=== PATIENT | female | born 1935 | race Caucasian/White ===

== ENCOUNTER 2020-05-21 01:00 | Outpatient (CLI) | payer MEDICARE, OTHER, SELFPAY ==
[2020-05-21 18:06] LABS: SARS-CoV-2 RNA PCR Negative
== END 2020-05-21 01:01 | disposition home or self-care (01) ==
LOC: ANHCOVIDDT 01:01
PROVIDERS: PCP Family Medicine; Visit Provider Specialist
DX: Z01.812 Encounter for preprocedural laboratory examination (principal); Z11.59 Encounter for screening for other viral diseases
CPT/HCPCS: 87635; C9803; U0003

== ENCOUNTER 2020-05-23 05:35 | Day surgery (SDC) | payer MEDICARE, OTHER, SELFPAY ==
[2020-05-23] VITALS (8 sets, daily range): BP systolic 109–144; BP diastolic 51–61; PULSE 60–80; RESP 12–22; TEMP 36.8–37; O2SAT 94–99; BMI 29.3
[2020-05-23 08:20] LABS: Basophils Absolute Auto 0.1 K/mm3 (0.0-0.1); Basophils Percent Auto 0.9 % (0.2-1.2); Hematocrit 28.3 % (37.0-47.0); Hemoglobin 7.9 g/dL (12.0-15.0); Immature Granulocyte Absolute 0.03 K/mm3 (0.00-0.031); Immature Granulocyte Percent A 0.5 % (0-0.5); Lymphocytes Absolute Auto 2.22 K/mm3 (0.9-3.2); Lymphocytes Percent Auto 34.5 % (18.3-44.2); Mean Corpuscular HGB Conc 27.9 g/dl (32-36); Mean Corpuscular Hemoglobin 21.2 pg (26-34); Mean Corpuscular Volume 76.1 fl (80-100); Mean Platelet Volume 9.7 fl (7.4-10.4); Monocytes Absolute Auto 0.5 K/mm3 (0.1-0.6); Monocytes Percent Auto 7.9 % (2.6-8.5); Neutrophils Absolute Auto 3.6 K/mm3 (1.3-6.7); Neutrophils Percent Auto 56.2 % (45.5-73.1); Platelet Count Result 408 k/mm3 (150-375); Red Blood Count 3.72 M/mm3 (4.2-5.4); Red Cell Distribution Width 19.6 % (11.5-14.5); White Blood Count 6.4 K/mm3 (4.5-10.0)
--- NOTE | 2020-05-23 08:25 | PM.IMHP ---
H&P: HPI History of Present Illness Chief complaint: Exertional Dyspnea Narrative: Caridad Mathews is a 84 year old female who is admitted to the hospital today as an outpatient for elective left heart catheterization. Patient was seen in the office in the request for primary care physician for evaluation of exertional shortness of breath. The patient was seen earlier this year with the request that his stress test be performed to evaluate the symptoms. She does not describe any obvious anginal-type chest pain but was a lady who could essentially perform normal activities and noticed over the last 6-12 months that her exertional capabilities have gradually declined because of dyspnea. As exercise stress test was done in the office which demonstrated a poor functional capacity and some upsloping ST segment depression which did not really meet clear diagnostic criteria for ischemia but was also not normal. She was seen in the office after this stress test and angiography was recommended to rule out obstructive coronary artery disease. The patient was scheduled for catheterization which then was canceled because of saldana virus. She has not been on stable clinically and has elected to wait until now have her procedure done as she was fearful of coming to the hospital during the worst of the pandemic. Review of Systems Constitutional: Constitutional: Reports no additional constitutional complaints Eyes: Eyes: Reports no additional eye complaints ENT: Reports system reviewed and no additional complaints, except as documented Cardiovascular: Cardiovascular: Reports as per HPI Respiratory: Respiratory: Reports dyspnea on exertion Gastrointestinal: Gastrointestinal: Reports no additional gastrointestinal complaints Genitourinary: Genitourinary: Reports no additional female genitourinary complaints Musculoskeletal: Musculoskeletal: Reports arthralgias Integumentary/Breasts: Skin/Breast: Reports system reviewed and no additional complaints, except as docu Neurologic: Reports system reviewed and no additional complaints, except as documented Psychiatric: Psychiatric: Reports no additional psychiatric complaints [facility] Social History Social History Smoking status: Former smoker Alcohol intake: never Substance use: never Living arrangements: with family Gender identity (if verbalized by the patient): Female Spiritual care concerns: No Meds Home Medications and Allergies Home Medications Medication Instructions Recorded Confirmed Type amlodipine 10 mg PO DAILY 05/22/20 05/22/20 History atorvastatin 40 mg PO HS 05/22/20 05/22/20 History lisinopril 40 mg PO DAILY 05/22/20 05/22/20 History aspirin [Adult Low Dose Aspirin] 81 mg PO DAILY 05/23/20 05/23/20 History calcium carbonate [Calcium 600] 1,200 mg PO DAILY 05/23/20 05/23/20 History cholecalciferol (vitamin D3) 10 mcg PO DAILY 05/23/20 05/23/20 History [Vitamin D3] coenzyme Q10 [CoQ-10] 200 mg PO DAILY 05/23/20 05/23/20 History niacin 500 mg PO DAILY 05/23/20 05/23/20 History omega 0-tlx-twk-fish oil [Fish Oil] 1 cap PO DAILY 05/23/20 05/23/20 History Allergies Allergy/AdvReac Type Severity Reaction Status Date / Time No Known Allergies Allergy Verified 05/23/20 08:25 Exam Const: General: comfortable and no acute distress HENMT: Mouth: Yes moist mucous membranes Eyes: Sclera: sclerae normal Pupils: Equal, round and reactive pupils present Neck: Neck: supple and no JVD Thyroid: thyroid normal Resp: Effort & Inspection: normal respiratory effort Auscultation: clear to auscultation bilaterally Cardio: Rate: regular rate Rhythm: regular rhythm Other: PMI of normal location and activity, no murmur no gallop no rub GI: GI Palp: Yes Soft to palpation Auscultation: normal bowel sounds Skin: General skin exam: normal color Neuro: Cognition (Neuro): normal cognition Extrem: General: normal to inspection Assessment and Plan Add
--- NOTE | 2020-05-23 08:29 | P.SEDATION_ITS ---
Moderate Sedation Note-Pt Data Patient Data Diagnosis: Exertional dyspnea, abnormal stress test Present Complaint: Shortness of breath with exertion Procedure to be performed/Plan: Left heart catheterization Allergies Allergy/AdvReac Type Severity Reaction Status Date / Time No Known Allergies Allergy Verified 05/23/20 08:25 Home Medications Medication Instructions Recorded Confirmed Type amlodipine 10 mg PO DAILY 05/22/20 05/22/20 History atorvastatin 40 mg PO HS 05/22/20 05/22/20 History lisinopril 40 mg PO DAILY 05/22/20 05/22/20 History aspirin [Adult Low Dose Aspirin] 81 mg PO DAILY 05/23/20 05/23/20 History calcium carbonate [Calcium 600] 1,200 mg PO DAILY 05/23/20 05/23/20 History cholecalciferol (vitamin D3) 10 mcg PO DAILY 05/23/20 05/23/20 History [Vitamin D3] coenzyme Q10 [CoQ-10] 200 mg PO DAILY 05/23/20 05/23/20 History niacin 500 mg PO DAILY 05/23/20 05/23/20 History omega 1-fbq-ajr-fish oil [Fish Oil] 1 cap PO DAILY 05/23/20 05/23/20 History Current Medications: Active Medications Sodium Chloride (Normal Saline Iv) 500 mls @ 100 mls/hr IV CONT .Q5H [facility] Sedation/Anesthesia: No previous sedation/anesthesia problems (including family history). [facility] Social History Social History Smoking status: Former smoker Alcohol intake: never Substance use: never Living arrangements: with family Gender identity (if verbalized by the patient): Female Spiritual care concerns: No Mod Sed Physical Exam Physical Exam Pre Procedural Exam: Normal: Appearance, Neck, Throat, Airway, Lungs, Heart Size, Heart Rate, Heart Rhythm, Neuro Exam and Extremities Hours since solid foods: 12 Hours since liquid intake: 12 Internal Medicine - PN: Obj Da Meds/Results Medications: Active Medications Generic Name Dose Route Start Last Admin Trade Name Freq PRN Reason Stop Dose Admin Sodium Chloride 500 mls @ 100 mls/hr 05/23/20 06:40 Normal Saline Iv IV CONT .Q5H [facility] Labs CBC & Chem 7: 05/23/20 08:12 05/23/20 08:12 ASA Classification/Sedation ASA Classification/Sedation ASA Class: II Emergent: No Risks: Risks, benefits and alternatives explained and patient/family accepted plan for sedation. Patient re-evaluated immediately prior to sedation.
[2020-05-23 08:31] LABS: Anisocytosis 2+ (NORMAL); Blood Urea Nitrogen 33 mg/dL (7-17); Calcium 9.4 mg/dL (8.4-10.2); Carbon Dioxide 25 mmol/L (22-30); Chloride 107 mmol/L (98-107); Estimated CRCL calculation 32 ml/min; Estimated Glomerular Filt Rate 43; Glucose 116 mg/dL (65-105); Platelet Estimate Adequate (Adequate); Potassium 4.6 mmol/L (3.4-5.0); Sodium 141 mmol/L (137-145)
[2020-05-23 08:32] LABS: Hypochromasia 2+ (NORMAL)
[2020-05-23 08:33] LABS: INR 0.9; Prothrombin Time 12.1 Seconds (11.1-14.7)
--- NOTE | 2020-05-23 09:40 | P.PCNCC_ITS ---
Cardiac Cath Procedure Note Date of procedure:: 05/23/20 Performing physician:: Timmy De La Fuente MD Indication:: Exertional dyspnea, abnormal stress electrocardiogram Brief clinical history:: this is an 84-year-old lady reporting symptoms of exertional dyspnea. She has no previous knowledge of cardiac disease. An exercise stress test was done as an outpatient which was modestly abnormal with nondiagnostic ST segment changes and poor functional capacity because of dyspnea. In this setting angiography was recommended. Procedure Procedure performed:: Left heart catheterization with left ventriculography and coronary angiography Angio-Seal to right femoral artery Sedation/Medication given:: fentanyl 50 mg Versed 2 mg case start time 9:22 a.m. case end time 9:25 a.m. sedation provided by Rosetta Sahni RN , trained observer Access site:: right femoral artery Estimated blood loss:: 10-15 cc Procedure note:: patient brought to the cardiac catheterization lab in the postabsorptive state the right femoral triangle was prepped and draped in usual fashion. Anesthesia was provided provided with 1% lidocaine infiltrated loc ally. Using modified Seldinger technique a 5 Burkinan sheath was placed into the common femoral artery. After this left heart catheterization was carried out. A 5 Burkinan angled pigtail catheter was document left-sided hemodynamics, pressures across the aortic valve and inject the ventriculogram HAWK projection. After this the pigtail catheter was withdrawn. A standard 5 Burkinan FL4 catheter was used to engage inject the left coronary multiple projections. Following this the right coronary was injected using a 5 Burkinan JR4 catheter. The cineangiograms and the case was then terminated. Angiogram was performed to the femoral artery through the after which a Angio-Seal device was deployed with a good hemostatic result. 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 Findings:: Hemodynamics: Central aortic pressure is 126/46 left ventricle 126/0 end diastolic pressure of 10. There is no gradient upon pullback across the aortic valve. The left ventricle is normal in size all segments contract well the ejection fraction is visually estimated to be 80% is hyperdynamic ventricle. The left main coronary artery is large in caliber there is mild left main disease in the distal aspect of the left main just prior to the bifurcation there is about 30% stenosis. In no view doses this appear to be approaching hemodynamic significance the LAD is a medium caliber vessel extending down to and around the apex the LAD is diagonal and septal branches are angiographically normal the circumflex is a medium caliber vessel giving rise to only 1 significant marginal branch. Circumflex system is angiographically free of significant disease right coronary artery is a very large caliber vessel dominant to the posterior circulation. There is a minimal plaque in the 2nd portion of the RCA representing no more than about 20% stenosis. There is KELBY 3 flow in the vessel with no angiographically significant disease. Conclusion:: Angiographically nonocclusive coronary artery disease including a 30% stenosis in the distal left main as well as a minimal plaque in the 2nd portion of the large dominant right coronary artery. Hyperdynamic left ventricular systolic function Timmy De La Fuente MD FACC
== END 2020-05-23 12:30 | disposition home or self-care (01) ==
PROVIDERS: PCP Family Medicine; Visit Provider Specialist
PROC: 4A023N7 Measurement of Cardiac Sampling and Pressure, Left Heart, Percutaneous Approach (ICD-10-PCS; CPT 93452; principal; 2020-05-23 08:30)
DX: I25.10 Atherosclerotic heart disease of native coronary artery without angina pectoris (principal); R94.31 Abnormal electrocardiogram [ECG] [EKG]; R06.09 Other forms of dyspnea; Z79.82 Long term (current) use of aspirin
CPT/HCPCS: 36415; 80048; 85025; 85610; 93458; C1760; C1887; C1894; G0269; J1644; J2250; J3010; J7040

== ENCOUNTER 2020-10-23 07:10 | Outpatient (CLI) | payer MEDICARE, OTHER, SELFPAY ==
[2020-10-23 07:49] LABS: Alanine Aminotransferase 17 U/L (4-35); Anion Gap 7 mmol/L (8-16); Blood Urea Nitrogen 29 mg/dL (7-17); Calcium 9.4 mg/dL (8.4-10.2); Carbon Dioxide 28 mmol/L (22-30); Chloride 107 mmol/L (98-107); Cholesterol 127 mg/dL (0-200); Estimated Glomerular Filt Rate 36; Glucose 129 mg/dL (65-105); HDL Direct 46 mg/dL; Potassium 4.4 mmol/L (3.4-5.0); Sodium 142 mmol/L (137-145); Triglycerides 146 mg/dL (<150)
[2020-10-23 08:00] LABS: LDL Cholesterol Direct 47 mg/dL
== END 2020-10-23 07:11 | disposition home or self-care (01) ==
PROVIDERS: PCP Family Medicine; Visit Provider Family Medicine
DX: I12.9 Hypertensive chronic kidney disease with stage 1 through stage 4 chronic kidney disease, or unspecified chronic kidney disease (principal); E78.5 Hyperlipidemia, unspecified
CPT/HCPCS: 36415; 80048; 80061; 84460

== ENCOUNTER 2020-10-23 16:30 | Observation (INO) | payer MEDICARE, OTHER, SELFPAY ==
[2020-10-23] VITALS (12 sets, daily range): BP systolic 117–145; BP diastolic 51–70; PULSE 77–106; RESP 10–18; TEMP 36.6–36.7; O2SAT 94–100
--- NOTE | ~2020-10-23 | XR_ITS ---
EXAMINATION: XR chest 2V DATE: 10/23/2020 17:08 INDICATION: Heart palpitations with interval worsening TECHNIQUE: AP and lateral views of the chest are obtained. COMPARISON: None available FINDINGS: The lungs are free of acute opacities. There is no pleural effusion or pneumothorax. The he art size is normal. There is a large hiatal hernia. There is mild thoracic spondylosis. IMPRESSION: 1. No acute cardiopulmonary abnormality. 2. Large hiatal hernia. Reviewed, dictated and finalized at location A. L BEARING FACER
--- NOTE | 2020-10-23 16:35 | ECG_ITS ---
Measurements Intervals [place] Rate: 105 P: 53 MI: 166 QRS: 2 QRSD: 82 T: 42 QT: 341 QTc: 452 Interpretive Statements SINUS TACHYCARDIA BORDERLINE ST ABNORMALITY- ANTEROLATERAL LEADS ABNORMAL ECG Electronically Signed On 10-24-2020 6:52:37 SPINDLE CARVER by Clayton Grullon D.O.
--- NOTE | 2020-10-23 16:54 | ED.ARRPALP ---
HPI - Arrhythmia/Palpitations General Chief Complaint: Arrhythmia/Palpitations Stated Complaint: HEART RACING Time Seen by Provider: 10/23/20 16:40 Source: patient and EMS Mode of arrival: EMS Limitations: no limitations History of Present Illness HPI narrative: 84 years old white female presents with palpitation, fast heartbeat prior to arrival lasted for 15 minutes. Result on arrival to the emergency room. Patient denies any associated shortness of breath or chest pain. Patient reported having similar symptoms on daily basis when she stands up and walk and get better after sitting and relaxing. Is been going since August 2020. Currently patient is asymptomatic. Patient denies any fever, chills, nausea, vomiting, chest pain, shortness of breath, headache, exposure to anybody known having COVID-19. Patient on baby aspirin once a day Related Data Home Medications Medication Instructions Recorded Confirmed amlodipine 10 mg PO DAILY 05/22/20 05/22/20 atorvastatin 40 mg PO HS 05/22/20 05/22/20 lisinopril 40 mg PO DAILY 05/22/20 05/22/20 aspirin [Adult Low Dose Aspirin] 81 mg PO DAILY 05/23/20 05/23/20 calcium carbonate [Calcium 600] 1,200 mg PO DAILY 05/23/20 05/23/20 cholecalciferol (vitamin D3) 10 mcg PO DAILY 05/23/20 05/23/20 [Vitamin D3] coenzyme Q10 [CoQ-10] 200 mg PO DAILY 05/23/20 05/23/20 niacin 500 mg PO DAILY 05/23/20 05/23/20 omega 0-bnq-spz-fish oil [Fish Oil] 1 cap PO DAILY 05/23/20 05/23/20 Allergies Allergy/AdvReac Type Severity Reaction Status Date / Time No Known Allergies Allergy Verified 10/23/20 16:41 Review of Systems Review of Systems: Narrative: CONSTITUTIONAL: Denies fever, chills, or sweats. EYES: Denies visual changes, redness, or discharge. ENT: Denies rhinorrhea, congestion, sore throat, or otalgia. CARDIOVASCULAR: Denies chest pain, palpitations, or edema. RESPIRATORY: Denies cough or dyspnea. GASTROINTESTINAL: Denies abdominal pain, nausea, vomiting, or diarrhea. GENITOURINARY: Denies dysuria or hematuria. SKIN: Denies rash or itching. MUSCULOSKELETAL: Denies back pain, joint pain, or myalgia. NEUROLOGIC: Denies headache, numbness, or weakness. PSYCHIATRIC: Denies anxiety or depression. PMFSH Social History Social History Smoking status: Former smoker Alcohol intake: never Substance use: never Gender identity (if verbalized by the patient): Female Spiritual care concerns: No Exam Narrative: Exam Narrative: General appearance: Well-developed, well-nourished Skin: Normal color Head: Normocephalic, nontraumatic Eyes: Clear conjunctiva ENT: Oropharynx normal, ears normal, nose normal Neck: Supple, nontender Chest and respiratory: Airway patent, no respiratory distress, no accessory muscle use Heart: Regular rate/rhythm Abdomen: Soft, nontender, no organomegaly, quiet bowel sounds. Rectal exam showed no stool in the rectal pouch, guaiac negative Vascular: Normal peripheral pulses, normal capillary refill. Musculoskeletal: Normal range of motion, nontender back Neurologic: Alert and oriented ?3, SPIRAL WINDER is normal as tested, no gross motor deficit Course Course Emergency Course: Resolved, improved NETWORK ARCHITECT MANAGER/PA Physician Supervision Freda Houston will receive a phone call tomorrow for Holter monitor placement Vital Signs Vital signs: Vital Signs Temperature 36.7 C 10/23/20 16:36 Pulse Rate 106 H 10/23/20 16:36 Respiratory Rate 13 10/23/20 16:36 Blood Pressure 145/70 H 10/23/20 16:36 Pulse Oximetry 94 10/23/20 16:36 Temperature 36.7 C 10/23/20 16:36 Pulse Rate 106 H 10/23/20 16:36 Respiratory Rate 13 10/23/20 16:36 Blood
[2020-10-23 17:24] LABS: Basophils Percent Auto 0.6 % (0.2-1.2); Hematocrit 23.8 % (37.0-47.0); Immature Granulocyte Absolute 0.02 K/mm3 (0.00-0.031); Immature Granulocyte Percent A 0.4 % (0-0.5); Lymphocytes Absolute Auto 1.54 K/mm3 (0.9-3.2); Lymphocytes Percent Auto 28.5 % (18.3-44.2); Mean Corpuscular HGB Conc 27.3 g/dl (32-36); Mean Corpuscular Hemoglobin 20.2 pg (26-34); Mean Corpuscular Volume 73.9 fl (80-100); Mean Platelet Volume 9.5 fl (7.4-10.4); Monocytes Absolute Auto 0.5 K/mm3 (0.1-0.6); Monocytes Percent Auto 8.5 % (2.6-8.5); Neutrophils Absolute Auto 3.4 K/mm3 (1.3-6.7); Platelet Count Result 349 k/mm3 (150-375); Red Blood Count 3.22 M/mm3 (4.2-5.4); Red Cell Distribution Width 18.2 % (11.5-14.5); White Blood Count 5.4 K/mm3 (4.5-10.0)
[2020-10-23 17:35] LABS: Anion Gap 4 mmol/L (8-16); Blood Urea Nitrogen 32 mg/dL (7-17); Calcium 9.7 mg/dL (8.4-10.2); Carbon Dioxide 27 mmol/L (22-30); Chloride 106 mmol/L (98-107); Estimated CRCL calculation 27 ml/min; Estimated Glomerular Filt Rate 36; Glucose 115 mg/dL (65-105); INR 0.9; Partial Thromboplastin Time 26.4 SECONDS (22.3-36.8); Potassium 4.4 mmol/L (3.4-5.0); Sodium 137 mmol/L (137-145)
[2020-10-23 17:46] LABS: Troponin I < 0.012 ng/mL (0.000-0.034)
[2020-10-23 17:52] LABS: Hemoglobin 6.5 g/dL (12.0-15.0)
[2020-10-23 18:01] LABS: Platelet Estimate Adequate (Adequate)
[2020-10-23 18:02] LABS: Anisocytosis 2+ (NORMAL); Hypochromasia 2+ (NORMAL)
--- NOTE | 2020-10-23 19:56 | PM.IMHP ---
H&P: HPI History of Present Illness Date/Time: 10/23/20 19:56 Chief complaint: palpitation, anemia Narrative: Caridad Mathews is a 84 year old female with past medical history hypertension and hyperlipidemia presents to ED with complaints of palpitations. She woke up this morning perfectly normal with no symptoms and even went to get a haircut. Then she had a sudden onset palpitations which last about 15 minutes in duration prompting her to come to the ED. She has had multiple episodes over the last year, had a stress test which was abnormal leading to a left heart catheterization in May 2020. May 2020 patient had a left heart catheterization for exertional dyspnea and nondiagnostic ST segment changes on outpatient exercise stress test. EF estimated 80%. Mild left main disease 30% stenosis, minimal plaque 2nd portion of large caliber vessel dominant RCA with 20% stenosis. conclusion was hyperdynamic left ventricular systolic function. Lab work at that time showed anemia hemoglobin 7.9. Had some anemia when she was a long time ago. In May she had MCV 76 and other blood lines were stable. She denies any blood loss, denies hemoptysis, hematemesis, vaginal bleeding, bright red blood per rectum, melena, trauma. She has no history of blood loss or any problems with blood loss in the past. She does not recall ever requiring a blood transfusion in the past. She is not on any iron supplements. On my evaluation patient denies any fevers, chills, nausea, vomiting, diarrhea, chest pain, abdominal pain, lightheadedness, dizziness. She is back to baseline and when I saw her she started having her 1st unit of blood being administered. In the ED: Patient is on be anemic a hemoglobin 6.5. Vital signs stable. creatinine elevated 1.4. Troponin is negative and has no chest pain. Chest x-ray showed large hiatal hernia otherwise negative. Patient admitted for observation for symptomatic anemia. Review of Systems Review of Systems: Narrative: Constitutional: No Fever, No Chills, No Night Sweats, No Fatigue, No Malaise ENT/Mouth: No Hearing Changes, No Ear Pain, No Nasal Congestion, No Sinus Pain, No Hoarseness, No sore throat, No Rhinorrhea, No Swallowing Difficulty Eyes: No Eye Pain, No Redness, No Vision Changes Cardiovascular: No Chest Pain, No Dyspnea on Exertion, No Orthopnea, No Claudication, No Edema. Palpitations resolved. Respiratory: No Cough, No Sputum, No Wheezing, No Shortness of Breath Gastrointestinal: No Nausea, No Vomiting, No Diarrhea, No Constipation, No Abdominal Pain, No Heartburn, No Hematochezia, No Melena Genitourinary: No Dysuria, No Urinary Frequency, No Hematuria, No Urinary Incontinence, No Urgency Musculoskeletal: No Arthralgias, No Myalgias, No Joint Swelling, No Joint Stiffness, No Back Pain Skin: No Skin Lesions, No Pruritis, No Hair Changes Neuro: No Weakness, No Numbness, No Paresthesias, No Loss of Consciousness, No Syncope, No Dizziness, No Headache Psych: No Anxiety/Panic, No Depression, No Insomnia Heme: No Bruising, No Bleeding Lymph: No Adenopathy Endocrine: No Polyuria, No Polydipsia, No Temperature Intolerance PMFSH Past Medical History Medical History (Updated 10/23/20 @ 23:35 by Miah Dougherty DO) CKD (chronic kidney disease) stage 3, GFR 30-59 ml/min Hyperlipidemia Hypertension Surgical History Surgical History (Updated 10/23/20 @ 23:20 by Miah Dougherty DO) History of right knee joint replacement Family History Family History (Updated 10/23/20 @ 23:20 by Miah Dougherty DO) Father Hypertension Cerebrovascular accident Mother Hypertension Colon cancer Alzheimer's dementia Social History Social History (Updated 10/23/20 @ 23:20 by Miah Dougherty DO) Social History: Independent, still drives, active Smoking status: Never smoker Alcohol intake: never Substance use: never Gender identity (if verbalized by the patient): Female
[2020-10-23 19:59] LABS: Immature Reticulocyte Fraction 23.3 % (3.0-15.9); Reticulocyte Hemoglobin Conten 18.5 pg (28.2-35.7); Reticulocyte Percent 1.68 % (0.7-4.3); Reticulocytes Absolute 0.05 B/L (32.2-175.7)
[2020-10-23 20:18] LABS: Alanine Aminotransferase 18 U/L (4-35); Albumin Level 4.2 g/dL (3.5-5.1); Alkaline Phosphatase 61 U/L (38-126); Aspartate Amino Transferase 24 U/L (14-36); Bilirubin,Total 0.4 mg/dL (0.2-1.3); Lactate Dehydrogenase 408 U/L (313-618)
[2020-10-23 20:24] LABS: Iron 12 ug/dL (37-170)
[2020-10-23 20:26] LABS: Transferrin 391 mg/dL (206-381)
[2020-10-23 20:30] LABS: Troponin I < 0.012 ng/mL (0.000-0.034)
[2020-10-23 20:35] LABS: Percent Iron Saturation 2 % (20-50)
[2020-10-23 21:01] LABS: Ferritin 4.19 ng/mL (11.1-264)
[2020-10-23 21:27] LABS: Folic Acid > 20.0 ng/mL (2.76->20)
--- NOTE | 2020-10-23 21:45 | ADMGEN ---
This patient, Caridad Mathews, was admitted to Medical Room 349-01. Patient/family oriented to hospital policies and general routines including ID bracelet, bed and alarms, visiting hours, pain management, procedures, bathroom and other care routines, personal items, smoking policy, room service/diet, and visiting hours. Information on how to activate the Rapid Response Team has been discussed. Patient/Family are encouraged to report perceived risks to care and to ask questions if they do not understand what they are told or what they should do.
[2020-10-23] MEDS: SODIUM CHLORIDE 0.9% IV 250 ML 30 ML IV CONT (22:01)
[2020-10-23 23:17] LABS: Troponin I < 0.012 ng/mL (0.000-0.034)
[2020-10-24] VITALS (13 sets, daily range): BP systolic 117–133; BP diastolic 45–68; PULSE 68–89; RESP 12–16; TEMP 36.4–37.1; O2SAT 96–99
[2020-10-24] MEDS: ATORVASTATIN 40 MG TABLET PO (00:45)
--- NOTE | 2020-10-24 06:00 | ECG_ITS ---
Measurements Intervals [place] Rate: 85 P: 35 CO: 165 QRS: -10 QRSD: 85 T: 18 QT: 354 QTc: 421 Interpretive Statements SINUS RHYTHM BASELINE WANDER- V4-V5 NORMAL ECG Electronically Signed On 10-24-2020 10:38:01 SUBSCRIPTION CREW LEADER by Clayton Grullon D.O.
[2020-10-24 07:14] LABS: Basophils Percent Auto 0.7 % (0.2-1.2); Hematocrit 31.5 % (37.0-47.0); Hemoglobin 9.6 g/dL (12.0-15.0); Immature Granulocyte Absolute 0.04 K/mm3 (0.00-0.031); Immature Granulocyte Percent A 0.7 % (0-0.5); Lymphocytes Absolute Auto 1.46 K/mm3 (0.9-3.2); Lymphocytes Percent Auto 25.3 % (18.3-44.2); Mean Corpuscular HGB Conc 30.5 g/dl (32-36); Mean Corpuscular Volume 75.5 fl (80-100); Mean Platelet Volume 9.3 fl (7.4-10.4); Monocytes Absolute Auto 0.5 K/mm3 (0.1-0.6); Monocytes Percent Auto 8.1 % (2.6-8.5); Neutrophils Absolute Auto 3.8 K/mm3 (1.3-6.7); Neutrophils Percent Auto 65.2 % (45.5-73.1); Platelet Count Result 310 k/mm3 (150-375); Red Blood Count 4.17 M/mm3 (4.2-5.4); Red Cell Distribution Width 19.6 % (11.5-14.5); White Blood Count 5.8 K/mm3 (4.5-10.0)
[2020-10-24] MEDS: CHOLECALCIFEROL 400 UNITS TABLET (VIT D) PO (08:15)
[2020-10-24] MEDS: CALCIUM CARBONATE (OSCAL) 500 MG TABLET 1000 MG PO (08:15)
[2020-10-24] MEDS: NIACIN SA 500 MG TABLET PO (08:15)
[2020-10-24] MEDS: ASPIRIN 81 MG ENTERIC TABLET PO (08:15)
[2020-10-24] MEDS: OMEGA 3 POLYUNSAT FATTY ACIDS 1 GM CAP PO (08:15)
[2020-10-24] MEDS: lisinopriL 20 MG TABLET 40 MG PO (08:16)
[2020-10-24] MEDS: amLODIPine BESYLATE 5 MG TABLET 10 MG PO (08:16)
[2020-10-24] MEDS: IRON SUCROSE COMPLEX 200 MG in SODIUM CHLORIDE 0.9% IV 50 ML 120 MG IVPB (11:28)
--- NOTE | 2020-10-24 13:27 | PM.DS ---
DS: Admitting Diagnosis Admitting Diagnosis Admitting Diagnosis: palpitation, anemia DS: Discharge Diagnosis Discharge Diagnosis (1) Fe deficiency anemia: Qualifiers: Iron deficiency anemia type: unspecified iron deficiency Qualified Code(s): D50.9 - Iron deficiency anemia, unspecified Code(s): D50.9 - Iron deficiency anemia, unspecified Status: Acute (2) CKD (chronic kidney disease) stage 3, GFR 30-59 ml/min: Qualifiers: Chronic kidney disease stage 3 subtype: stage 3b (GFR 30-44) Qualified Code(s): N18.32 - Chronic kidney disease, stage 3b Code(s): N18.30 - Chronic kidney disease, stage 3 unspecified Status: Acute (3) Palpitations: Code(s): R00.2 - Palpitations Status: Acute DS: Summary Hospital Course Reason for hospitalization: Patient was admitted to the hospital palpitations leg occurred shortly prior to arrival. She was found to have symptomatic anemia with a hemoglobin less than 7. H&P for further details. Hospital Course: Patient was admitted for symptomatic anemia. She was found to have evidence of iron deficiency. She received 2 units packed red blood cells with repeat hemoglobin of 9.6. After transfusion. Her iron studies iron deficiency anemia. She was given a dose of 200 mg IV x1. She was started on ferrous sulfate 3 and 25 mg b.i.d. with meals. I encouraged her to also take some vitamin-C to increase iron absorption. Time Spent with Patient Time attestation: Total time spent providing and/or coordinating discharge services: 40 minutes Exam Narrative: Exam Narrative: PHYSICAL EXAM: WEIGHT 73 kg BMI 28.5 General: No acute distress, well-developed well-nourished HEENT: Mucous membranes are moist, mild conjunctival pallor Respiratory: Clear to auscultation bilaterally, no increased work of breathing Cardiovascular: Regular rate, regular rhythm Gastrointestinal: Soft, nontender, nondistended, positive bowel sounds Skin: Mild pallor, non jaundice Musculoskeletal: No clubbing, cyanosis or edema Neurological: Alert and oriented, speech is clear, no facial asymmetry, hard of hearing Psychiatric: Appropriate mood and affect, pleasant and cooperative : Deferred Hematologic/lymphatic: No petechiae, bruising or evidence of bleeding DS: Data Data Completed and Pending Labs on day of discharge: Labs from last 24 hours 10/24/20 10/23/20 10/23/20 07:06 22:46 19:51 WBC 5.8 RBC 4.17 L Hgb 9.6 L D Hct 31.5 L MCV 75.5 L MCH 23.0 L D MCHC 30.5 L RDW 19.6 H Plt Count 310 MPV 9.3 Immature Gran % (Auto) 0.7 H Neut % (Auto) 65.2 Lymph % (Auto) 25.3 [place] % (Auto) 8.1 Eos % (Auto) 0.0 Baso % (Auto) 0.7 Lymph # (Auto) 1.46 [place] # (Auto) 0.5 Eos # (Auto) 0.0 Baso # (Auto) 0.0 Abs Immat Gran (auto) 0.04 H Absolute Neuts (auto) 3.8 Absolute Nucleated RBC 0.0 Nucleated RBC % 0.0 Platelet Estimate Hypochromasia Anisocytosis Absolute Retic Percent Retic Immature Retic Fraction Retic Hgb Content Haptoglobin Pending PT INR APTT Sodium Potassium Chloride Carbon Dioxide Anion Gap BUN Creatinine Estim Creat Clear Calc Estimated GFR Glucose Calcium Iron TIBC % Saturation Transferrin Ferritin Total Bilirubin Direct Bilirubin AST ALT Alkaline Phosphatase Lactate Dehydrogenase Troponin I < 0.012 Total Protein Albumin Vitamin B12 Folate TSH (Reflex) Blood Type Antibody Screen Crossmatch 10/23/20 10/23/20 10/23/20 19:51 19:51 19:51 WBC RBC Hgb Hct MCV MCH MCHC RDW Plt Count MPV Immature Gran % (Auto) Neut % (Auto) Lymph % (Auto) [place] % (Auto) Eos % (Auto) Baso % (Auto) Lymph # (Auto) [place] # (Auto) Eos # (Auto) Baso # (Auto) Abs Immat Gran (auto)
[2020-10-30 20:04] LABS: Haptoglobin 247 mg/dL (43-212)
== END 2020-10-24 16:35 | disposition home or self-care (01) ==
LOC: ANHED 18:38 → ANH3MED 10-24 07:16
PROVIDERS: Physician Assistant; Admitting Provider Internal Medicine; Emergency Provider Emergency Medicine; PCP Family Medicine; Visit Provider Internal Medicine
DX: R00.2 Palpitations (principal); D50.9 Iron deficiency anemia, unspecified; I12.9 Hypertensive chronic kidney disease with stage 1 through stage 4 chronic kidney disease, or unspecified chronic kidney disease; N18.32 Chronic kidney disease, stage 3b; E78.5 Hyperlipidemia, unspecified; K44.9 Diaphragmatic hernia without obstruction or gangrene; Z96.651 Presence of right artificial knee joint; Z79.899 Other long term (current) drug therapy; Z79.01 Long term (current) use of anticoagulants
CPT/HCPCS: 36415; 36430; 71046; 80048; 80061; 80076; 82247; 82248; 82607; 82728; 82746; 83010; 83540; 83550; 83615; 84443; 84460; 84466; 84484; 85025; 85046; 85610; 85730; 86644; 86850; 86900; 86901; 86920; 93005; 96365; 99285; A9270; G0378; J1756; J7050; P9016

== ENCOUNTER 2020-10-31 08:50 | Outpatient (CLI) | payer MEDICARE, OTHER, SELFPAY ==
[2020-10-31 10:03] LABS: Hematocrit 36.8 % (37.0-47.0); Hemoglobin 10.6 g/dL (12.0-15.0); Mean Corpuscular HGB Conc 28.8 g/dl (32-36); Mean Corpuscular Hemoglobin 23.7 pg (26-34); Mean Corpuscular Volume 82.3 fl (80-100); Mean Platelet Volume 9.4 fl (7.4-10.4); Platelet Count Result 302 k/mm3 (150-375); Red Blood Count 4.47 M/mm3 (4.2-5.4); Red Cell Distribution Width 23.3 % (11.5-14.5)
[2020-10-31 13:38] LABS: IFOB Positive Control Positive; Immunochemical Fecal Occult Bl Negative (N)
== END 2020-10-31 08:51 | disposition home or self-care (01) ==
PROVIDERS: PCP Family Medicine; Visit Provider Family Medicine
DX: D64.9 Anemia, unspecified (principal)
CPT/HCPCS: 36415; 82274; 85027

== ENCOUNTER 2020-12-15 09:02 | Outpatient (CLI) | payer MEDICARE, OTHER, SELFPAY ==
[2020-12-15 09:37] LABS: Basophils Percent Auto 0.8 % (0.2-1.2); Hematocrit 38.3 % (37.0-47.0); Hemoglobin 11.9 g/dL (12.0-15.0); Immature Granulocyte Absolute 0.02 K/mm3 (0.00-0.031); Immature Granulocyte Percent A 0.4 % (0-0.5); Immature Platelet Fraction Pct 1.6 % (0.9-11.2); Immature Reticulocyte Fraction 10.7 % (3.0-15.9); Lymphocytes Absolute Auto 1.74 K/mm3 (0.9-3.2); Lymphocytes Percent Auto 34.7 % (18.3-44.2); Mean Corpuscular HGB Conc 31.1 g/dl (32-36); Mean Corpuscular Hemoglobin 27.2 pg (26-34); Mean Corpuscular Volume 87.6 fl (80-100); Mean Platelet Volume 9.1 fl (7.4-10.4); Monocytes Absolute Auto 0.4 K/mm3 (0.1-0.6); Monocytes Percent Auto 7.6 % (2.6-8.5); Neutrophils Absolute Auto 2.8 K/mm3 (1.3-6.7); Neutrophils Percent Auto 56.5 % (45.5-73.1); Platelet Count Result 304 k/mm3 (150-375); Red Blood Count 4.37 M/mm3 (4.2-5.4); Red Cell Distribution Width 25.1 % (11.5-14.5); Reticulocytes Absolute 0.05 B/L (32.2-175.7)
[2020-12-15 10:14] LABS: Platelet Estimate Adequate (Adequate)
[2020-12-15 10:15] LABS: Microcytosis 1+ (NORMAL); Ovalocytes 1+ (NORMAL)
== END 2020-12-15 09:03 | disposition home or self-care (01) ==
PROVIDERS: Visit Provider Nurse Practitioner Adult Health
DX: D64.9 Anemia, unspecified (principal)
CPT/HCPCS: 36415; 85025; 85046; 85055

== ENCOUNTER 2021-03-16 08:38 | Outpatient (CLI) | payer MEDICARE, SELFPAY ==
[2021-03-16 09:07] LABS: Alanine Aminotransferase 21 U/L (4-35); Albumin Level 4.4 g/dL (3.5-5.1); Alkaline Phosphatase 63 U/L (38-126); Anion Gap 3 mmol/L (8-16); Aspartate Amino Transferase 27 U/L (14-36); Bilirubin,Total 0.7 mg/dL (0.2-1.3); Blood Urea Nitrogen 23 mg/dL (7-17); Calcium 9.8 mg/dL (8.4-10.2); Carbon Dioxide 33 mmol/L (22-30); Chloride 106 mmol/L (98-107); Cholesterol 130 mg/dL (0-200); Estimated Glomerular Filt Rate 43; Glucose 116 mg/dL (65-105); HDL Direct 45 mg/dL; Potassium 4.3 mmol/L (3.4-5.0); Sodium 142 mmol/L (137-145); Triglycerides 179 mg/dL (<150)
[2021-03-16 09:18] LABS: LDL Cholesterol Direct 53 mg/dL
[2021-03-16 09:30] LABS: Hemoglobin 12.7 g/dL (12.0-15.0); Mean Corpuscular HGB Conc 32.6 g/dl (32-36); Mean Corpuscular Hemoglobin 31.8 pg (26-34); Mean Corpuscular Volume 97.5 fl (80-100); Mean Platelet Volume 9.7 fl (7.4-10.4); Platelet Count Result 269 k/mm3 (150-375); Red Cell Distribution Width 11.9 % (11.5-14.5)
[2021-03-16 09:54] LABS: Iron 94 ug/dL (37-170)
[2021-03-16 10:05] LABS: Percent Iron Saturation 29 % (20-50)
== END 2021-03-16 08:39 | disposition home or self-care (01) ==
PROVIDERS: PCP Family Medicine; Visit Provider Physician Assistant
DX: D64.9 Anemia, unspecified (principal); E78.5 Hyperlipidemia, unspecified; I10 Essential (primary) hypertension
CPT/HCPCS: 36415; 80053; 80061; 83540; 83550; 85027

== ENCOUNTER 2021-03-20 08:34 | Outpatient (CLI) | payer MEDICARE, SELFPAY ==
--- NOTE | ~2021-03-20 | MM_ITS ---
EXAMINATION: MM screening sivan BI w alesha HISTORY: Screening TECHNIQUE: Craniocaudal and mediolateral oblique 3-D tomosynthesis images were obtained and synthetic 2-D images were generated. CAD analysis was submitted and interpreted. COMPARISON: Comparison to multiple prior studies sequentially, with oldest reviewed study dated 03/2016. BREAST PARENCHYMAL COMPOSITION: There are scattered areas of fibroglandular density. FINDINGS: There is a new 6 mm mass in the upper outer quadrant of the right breast. The left breast i s stable without evidence for malignancy. IMPRESSION: 1. New 6 mm right breast mass, upper outer quadrant, middle-posterior third. 2. Additional mammographic views and possible breast ultrasound are recommended. BI-RADS Category 0: Incomplete: Needs additional imaging evaluation. Reviewed, dictated and finalized at location A. IMPRESSION: 1. New 6 mm right breast mass, upper outer quadrant, middle-posterior third. 2. Additional mammographic views and possible breast ultrasound are recommended . BI-RADS Category 0: Incomplete: Needs additional imaging evaluation.
== END 2021-03-20 08:35 | disposition home or self-care (01) ==
LOC: ANHIMG 08:36
PROVIDERS: PCP Family Medicine; Visit Provider Physician Assistant
DX: Z12.31 Encounter for screening mammogram for malignant neoplasm of breast (principal); R92.8 Other abnormal and inconclusive findings on diagnostic imaging of breast
CPT/HCPCS: 77063; 77067

== ENCOUNTER 2021-04-14 12:54 | Outpatient (CLI) | payer MEDICARE, SELFPAY ==
--- NOTE | ~2021-04-14 | MMUS_ITS ---
EXAMINATION: MM diagnostic mammo unilat RT, US breast RT limited HISTORY: Follow-up right breast asymmetry TECHNIQUE: Additional 3-D tomosynthesis images of the right breast were performed and synthetic 2-D i mages were generated. CAD analysis was submitted and interpreted. High resolution Limited right breas t ultrasound was performed. COMPARISON: 03/20/2021 BREAST PARENCHYMAL COMPOSITION: Breast composed of scattered areas of fibroglandular density. FINDINGS: MAMMOGRAPHIC FINDINGS: Focal asymmetry in the upper outer quadrant of the right breast is less apparent with spot compressio n and mediolateral views. There is suggestion of persistent asymmetry centrally in the right breast o n spot MLO view. No suspicious calcifications or architectural distortion. ULTRASOUND: Limited right breast ultrasound: Normal heterogeneous echotexture without focal solid or cystic mass. IMPRESSION: 1. Right breast asymmetry is likely benign superimposed fibroglandular tissue. 2. Recommend 6 month follow-up diagnostic right mammogram BI-RADS category 3, probably benign findings. Reviewed, dictated and finalized at location A. IMPRESSION: 1. Right breast asymmetry is likely benign superimposed fibroglandular tissue. 2. Recommend 6 month follow-up diagnostic right mammogram BI-RADS category 3, probably benign findings.
== END 2021-04-14 12:55 | disposition home or self-care (01) ==
PROVIDERS: PCP Family Medicine; Visit Provider Family Medicine
DX: R92.8 Other abnormal and inconclusive findings on diagnostic imaging of breast (principal)
CPT/HCPCS: 76642; 77065

== ENCOUNTER 2021-06-25 09:38 | Emergency (ER) | payer MEDICARE, SELFPAY ==
[2021-06-25 09:53] VITALS: BP 118/61; PULSE 83; RESP 16; TEMP 36.3; O2SAT 99
--- NOTE | 2021-06-25 10:15 | ED.BACK ---
HPI - Back Pain/Injury General Chief Complaint: Back Pain/Injury Stated Complaint: Back Pain Time Seen by Provider: 06/25/21 10:15 Source: patient and RN notes reviewed Mode of arrival: ambulatory Limitations: no limitations History of Present Illness HPI Narrative: 85-year-old female presents with concern for right low back pain that radiates down the right side. Reports pain started Tuesday without injury. Reports she was doing yard work prior to the pain starting. She denies loss of bowel or bladder function, perianal anesthesia, fever, abdominal pain, dysuria, urine frequency, urine urgency, hematuria. Reports a history of sciatica, has not had a flareup in several years. She denies weakness in any extremity. Reports pain is exacerbated with bending, twisting, moving. MD elicited complaint: back pain Related Data Home Medications Medication Instructions Recorded Confirmed lisinopril 40 mg PO DAILY 05/22/20 06/25/21 calcium carbonate [Calcium 600] 1,200 mg PO DAILY 05/23/20 06/25/21 cholecalciferol (vitamin D3) 10 mcg PO DAILY 05/23/20 06/25/21 [Vitamin D3] coenzyme Q10 [CoQ-10] 200 mg PO DAILY 05/23/20 06/25/21 niacin 500 mg PO DAILY 05/23/20 06/25/21 omega 2-oio-wkw-fish oil [Fish Oil] 1 cap PO DAILY 05/23/20 06/25/21 amlodipine 5 mg tablet 5 mg PO DAILY 03/11/21 06/25/21 Allergies Allergy/AdvReac Type Severity Reaction Status Date / Time No Known Allergies Allergy Verified 06/25/21 10:06 Review of Systems Review of Systems: CONSTITUTIONAL: Denies malaise, chills, sweats, or fever. CARDIOVASCULAR: Denies chest pain, palpitations, or edema. RESPIRATORY: Denies cough or dyspnea. GASTROINTESTINAL: Denies abdominal pain denies loss of bowel function or perianal anesthesia GENITOURINARY: Denies dysuria or hematuria. Denies loss of bladder function SKIN: Denies open skin, redness, bruising MUSCULOSKELETAL: Reports right low back pain that radiates down the right leg. Denies joint pain or myalgia. NEUROLOGIC: Denies numbness, weakness, or headache. All systems reviewed & are unremarkable except as noted in HPI and below PMFSH Past Medical History Medical History (Updated 06/25/21 @ 10:24 by Meena Dawkins NP) CKD (chronic kidney disease) stage 3, GFR 30-59 ml/min Hyperlipidemia Hypertension Surgical History Surgical History History of right knee joint replacement Family History Family History (Updated 03/11/21 @ 11:11 by Jordyn Tran [facility]) Father Hypertension Cerebrovascular accident Mother Hypertension Colon cancer Alzheimer's dementia Sibling Diabetes mellitus Social History Social History (Updated 03/11/21 @ 11:12 by Jordyn Tran [facility]) Social History: Independent, still drives, active Smoking status: Never smoker Alcohol intake: never Substance use: never Gender identity (if verbalized by the patient): Female Spiritual care concerns: No Agree to blood products: Yes Comments At time of signature, agree with nursing past medical, surgical, social and family history. There is no relevant family history pertinent to the presenting complaint Exam Narrative: GENERAL: Well-appearing, well-nourished, and in no acute distress. HEAD: Normocephalic, atraumatic. EYES: PERRLA and EOMI. NECK: Supple. No lymphadenopathy. CHEST: Clear to auscultation. No respiratory distress. HEART: Regular rate and rhythm. Distal pulses palpable and equal, cap refill <3 seconds ABDOMEN: Soft, nontender, nondistended, normal active bowel sounds, no palpable or pulsatile masses. No CVA tenderness MUSCULOSKELETAL: Normal range of motion and strength in all extremities; 5/5 strength with hip flexion and extension, dorsiflexion and extension, knee flexion and extension, plantar flexion and extension. Normal sensation in dermatomal distributions with sensitivity to light touch and pain. No midline back tenderness to
== END 2021-06-25 10:36 | disposition home or self-care (01) ==
PROVIDERS: Emergency Provider Nurse Practitioner; PCP Family Medicine
DX: M54.5 Low back pain (principal); I12.9 Hypertensive chronic kidney disease with stage 1 through stage 4 chronic kidney disease, or unspecified chronic kidney disease; N18.30 Chronic kidney disease, stage 3 unspecified; E78.5 Hyperlipidemia, unspecified
CPT/HCPCS: 99213; G0463

== ENCOUNTER 2021-07-10 08:43 | Emergency (ER) | payer MEDICARE, SELFPAY ==
[2021-07-10 08:45] VITALS: BP 115/55; PULSE 98; RESP 16; TEMP 36.2; O2SAT 98
--- NOTE | 2021-07-10 09:52 | ED.SKABFB ---
HPI - Skin/Abscess/Foreign Bdy General Chief complaint: Skin/Abscess/Foreign Body Stated complaint: Rash Time Seen by Provider: 07/10/21 09:53 Source: patient Mode of arrival: ambulatory Limitations: no limitations History of Present Illness HPI narrative: Caridad Aponte is an 85 yo female with a PMH of hypertension and high cholesterol, who comes with contact dermatitis that started a couple days ago and is generally over hands arms and left hip Related Data Home Medications Medication Instructions Recorded Confirmed calcium carbonate [Calcium 600] 1,200 mg PO DAILY 05/23/20 07/10/21 cholecalciferol (vitamin D3) 10 mcg PO DAILY 05/23/20 07/10/21 [Vitamin D3] coenzyme Q10 [CoQ-10] 200 mg PO DAILY 05/23/20 07/10/21 niacin 500 mg PO DAILY 05/23/20 07/10/21 omega 7-nab-suc-fish oil [Fish Oil] 1 cap PO DAILY 05/23/20 07/10/21 amlodipine 5 mg tablet 5 mg PO DAILY 03/11/21 07/10/21 Allergies Allergy/AdvReac Type Severity Reaction Status Date / Time No Known Allergies Allergy Verified 07/10/21 09:19 Review of Systems Review of Systems: CONSTITUTIONAL: Denies fever, chills, sweats. EYES: Denies visual changes, redness, discharge. ENT: Denies rhinorrhea, congestion, sore throat, otalgia. CARDIOVASCULAR: Denies chest pain, palpitations, edema. RESPIRATORY: Denies dyspnea, wheezing, cough GASTROINTESTINAL: Denies abdominal pain, nausea, vomiting, diarrhea. GENITOURINARY: Denies dysuria, hematuria, abnormal discharge SKIN: Rash on bilateral hands arms and left hip NEUROLOGIC: Denies numbness, or focal weakness. PSYCHIATRIC: Denies anxiety or depression. [facility] Past Medical History Medical History CKD (chronic kidney disease) stage 3, GFR 30-59 ml/min Hyperlipidemia Hypertension Surgical History Surgical History History of right knee joint replacement Family History Family History Father Hypertension Cerebrovascular accident Mother Hypertension Colon cancer Alzheimer's dementia Sibling Diabetes mellitus Social History Social History Social History: Independent, still drives, active Smoking status: Never smoker Alcohol intake: never Substance use: never Gender identity (if verbalized by the patient): Female Spiritual care concerns: No Agree to blood products: Yes Comments At time of signature, I agree with nursing past medical, surgical, social and family history. There is no relevant family history pertinent to the presenting complaint. Exam Narrative: GENERAL: This is a well-nourished, well-developed patient, in mild distress. HEAD: normocephalic, atraumatic. EYES: Sclera clear/white. Vision is grossly intact. EARS: External ears normal, . Hearing grossly intact. NOSE: External nose normal without nasal discharge, nares without redness, no rhinorrhea. THROAT: Mucous membranes moist, small lesion on tongue NECK: Neck supple, non-tender CARDIOVASCULAR: Regular rate and rhythm without murmurs, gallops, or rubs. RESPIRATORY: Clear to auscultation. Breath sounds equal bilaterally. No wheezes, rales, or rhonchi. GASTROINTESTINAL: Abdomen soft, SKIN: warm, intact with rash on hands and arms that is red papular that is also on left hip, small lesions on tongue NEURO: awake, alert, and oriented to person, place and time. There were no obvious focal neurologic abnormalities. Steady gait EXTREMITIES: Normal range of motion. BACK: Nontender without deformity Course Course Emergency Course: Patient here with rash on hands and arms left His been on prednisone recently for sciatica discussed continued stretching exercises with sciatica Started on Medrol Dosepak Discussed ways to manage dermatitis Vital Signs Vital signs: Vital Signs Temperature 97.1
== END 2021-07-10 10:04 | disposition home or self-care (01) ==
PROVIDERS: Emergency Provider Nurse Practitioner; PCP Family Medicine
DX: L23.7 Allergic contact dermatitis due to plants, except food (principal); I12.9 Hypertensive chronic kidney disease with stage 1 through stage 4 chronic kidney disease, or unspecified chronic kidney disease; N18.30 Chronic kidney disease, stage 3 unspecified; E78.00 Pure hypercholesterolemia, unspecified; E78.5 Hyperlipidemia, unspecified; Z96.651 Presence of right artificial knee joint
CPT/HCPCS: 99213; G0463

== ENCOUNTER 2021-09-14 07:39 | Outpatient (CLI) | payer MEDICARE, SELFPAY ==
[2021-09-14 08:17] LABS: Hematocrit 38.1 % (37.0-47.0); Hemoglobin 12.5 g/dL (12.0-15.0); Mean Corpuscular HGB Conc 32.8 g/dl (32-36); Mean Corpuscular Volume 97.4 fl (80-100); Mean Platelet Volume 9.4 fl (7.4-10.4); Platelet Count Result 278 k/mm3 (150-375); Red Blood Count 3.91 M/mm3 (4.2-5.4); Red Cell Distribution Width 12.2 % (11.5-14.5); White Blood Count 5.3 K/mm3 (4.5-10.0)
[2021-09-14 08:28] LABS: Alanine Aminotransferase 22 U/L (4-35); Albumin Level 4.5 g/dL (3.5-5.1); Alkaline Phosphatase 54 U/L (38-126); Anion Gap 8 mmol/L (8-16); Aspartate Amino Transferase 27 U/L (14-36); Bilirubin,Total 0.7 mg/dL (0.2-1.3); Blood Urea Nitrogen 23 mg/dL (7-17); Calcium 9.6 mg/dL (8.4-10.2); Carbon Dioxide 29 mmol/L (22-30); Chloride 103 mmol/L (98-107); Cholesterol 138 mg/dL (0-200); Estimated Glomerular Filt Rate 53; Glucose 116 mg/dL (65-110); HDL Direct 44 mg/dL; Potassium 4.2 mmol/L (3.4-5.0); Sodium 140 mmol/L (137-145); Triglycerides 189 mg/dL (<150)
[2021-09-14 08:39] LABS: LDL Cholesterol Direct 55 mg/dL
[2021-09-14 09:31] LABS: Iron 91 ug/dL (37-170)
[2021-09-14 09:40] LABS: Percent Iron Saturation 27 % (20-50)
== END 2021-09-14 07:40 | disposition home or self-care (01) ==
PROVIDERS: PCP Family Medicine; Visit Provider Physician Assistant
DX: D64.9 Anemia, unspecified (principal); I10 Essential (primary) hypertension; E78.5 Hyperlipidemia, unspecified
CPT/HCPCS: 36415; 80053; 80061; 83540; 83550; 85027

== ENCOUNTER 2021-09-15 10:02 | Outpatient (CLI) | payer MEDICARE, SELFPAY ==
--- NOTE | ~2021-09-15 | XR_ITS ---
EXAMINATION: XR lumbar spine min 4V DATE: 09/15/2021 10:41 INDICATION: Low back pain TECHNIQUE: Anteroposterior, lateral, and bilateral oblique views of the lumbar spine, and cone-down l ateral view of the lumbosacral junction were obtained. COMPARISON: None. FINDINGS: There are 2 mm of anterolisthesis of L4 on L5 and L5 on S1. There is severe loss of interve rtebral disc space height at L3-4 and L4-5 and moderate loss of disc space height throughout the chris meagan of the lumbar spine. No fractures identified. The vertebral body heights are maintained. There is advanced facet osteoarthritis of the lower lumbar spine. Small degenerative osteophytes project fr om the anterior endplates of multiple vertebral bodies. Calcified atherosclerosis is noted. IMPRESSION: 1. Moderate to severe lumbar spondylosis. Reviewed, dictated and finalized at location B.
== END 2021-09-15 10:03 | disposition home or self-care (01) ==
PROVIDERS: PCP Family Medicine; Visit Provider Physician Assistant
DX: D64.9 Anemia, unspecified (principal); M47.896 Other spondylosis, lumbar region
CPT/HCPCS: 72110

== ENCOUNTER 2021-10-15 11:15 | Outpatient (CLI) | payer MEDICARE, SELFPAY ==
--- NOTE | ~2021-10-15 | MM_ITS ---
EXAMINATION: MM diagnostic sivan RT w alesha HISTORY: Mammographic asymmetry reported in right breast on 04/14/2021 diagnostic right mammogram TECHNIQUE: ML, MLO and cc full field and spot 3-D tomosynthesis images of right breast were performed and synthetic 2-D images were generated. CAD analysis was submitted and interpreted. COMPARISON: 04/14/2021 diagnostic right mammogram and limited right breast ultrasound 03/20/2021, 11/22/2016 bilateral screening mammogram examinations BREAST PARENCHYMAL COMPOSITION: There are scattered areas of fibroglandular density. FINDINGS: No suspicious mass or architectural distortion, malignant calcification, skin thickening or retraction is evident. There are some posterior circumscribed intramammary lymph nodes in the mid to upper right breast which appear stable since 11/22/2016. IMPRESSION: 1. Benign findings; no mammographic evidence of malignancy 2. Routine mammographic screening is recommended BI-RADS Category 2: Benign finding(s). Reviewed, dictated and finalized at location A. PULLER
== END 2021-10-15 11:16 | disposition home or self-care (01) ==
LOC: ANHIMG 11:16
PROVIDERS: PCP Family Medicine; Visit Provider Physician Assistant
DX: R92.8 Other abnormal and inconclusive findings on diagnostic imaging of breast (principal)
CPT/HCPCS: 77061; 77065; G0279

== ENCOUNTER 2022-02-28 08:38 | Observation (INO) | payer MEDICARE, SELFPAY ==
[2022-02-28] VITALS (14 sets, daily range): BP systolic 112–134; BP diastolic 46–86; PULSE 69–82; RESP 16–18; TEMP 35.9–37.1; O2SAT 94–99
--- NOTE | ~2022-02-28 | CT_ITS ---
EXAMINATION: CT brain wo con DATE: 02/28/2022 10:44 INDICATION: Syncope. Head injury. TECHNIQUE: Computed tomography (CT) of the head was performed without intravenous contrast. The mA wa s adjusted according to patient size. Iterative reconstruction technique was employed. The dose-lengt h product was 605.33 mGy-cm. COMPARISON: Head CT 08/26/2014 FINDINGS: There are scattered areas of low attenuation in the cerebral white matter, which is within normal limits for the patient's age. There is no intracranial hemorrhage, acute infarction, or abnorm al intracranial mass lesion. The ventricles are normal in size. There is mild mucosal thickening in t he ethmoid sinuses. There are likely changes of ocular lens replacement surgeries. The mastoid air ce lls are normal. IMPRESSION: 1. Normal aging brain. Reviewed, dictated and finalized at location A. IMPRESSION: 1. Normal aging brain.
--- NOTE | ~2022-02-28 | US_ITS ---
EXAMINATION: US carotid duplex BI DATE: 03/01/2022 12:23 INDICATION: Syncope. Cerebral atherosclerosis. TECHNIQUE: Grayscale, color Doppler, and pulsed Doppler images of the cervical carotid arteries were obtained. The degree of vessel stenosis is placed in one of the following categories: normal, <50%, 5 0-69%, >=70% but less than near-occlusion, near-occlusion, or total occlusion. Note that percent sten osis relative to normal distal artery lumen diameter is indirectly measured from velocity measurement s as described by Billy, et al. Radiology 2003; 229:[id number]. COMPARISON: None. FINDINGS: RIGHT: The right common carotid artery (CCA) peak systolic velocity (PSV) is 134 cm/s. The right internal ca rotid artery (ICA) PSV is 64 cm/s. The right ICA end-diastolic velocity (EDV) is 17 cm/s. The right I CA/CCA PSV ratio is 0.5. Grayscale and color Doppler images yield an estimate of <50% diameter reduct ion from plaque in the ICA. The external carotid artery (ECA) PSV is 82 cm/s. There is antegrade flow in the right vertebral artery. LEFT: The left CCA PSV is 99 cm/s. The left ICA PSV is 33 cm/s. The left ICA EDV is 7 cm/s. The left ICA/CC A PSV ratio is 0.3. Grayscale and color Doppler images yield an estimate of <50% diameter reduction f rom plaque in the ICA. The ECA PSV is 73 cm/s. There is antegrade flow in the left vertebral artery. IMPRESSION: 1. <50% stenosis in the right internal carotid artery. 2. <50% stenosis in the left internal carotid artery. Reviewed, dictated and finalized at location A.
--- NOTE | ~2022-02-28 | CT_ITS ---
EXAMINATION: CT cervical spine wo con DATE: 02/28/2022 10:45 INDICATION: Head injury. TECHNIQUE: Computed tomography (CT) of the cervical spine was performed without intravenous contrast. Automated exposure control and iterative reconstruction technique were employed. The dose-length pro duct was 313.65 mGy-cm. COMPARISON: CT cervical spine 08/26/2014 FINDINGS: There is 2 mm anterolisthesis of C5 on C6. There is mild kyphosis of cervical spine. Verteb ral body heights are normal. There is severely decreased disc height at C3-C4 and C4-C5 and mildly de creased disc height at C5-C6 and C6-C7. The following disc levels are specifically discussed: C2-C3: There is mild bilateral uncovertebral joint osteoarthritis. There is severe bilateral facet zane int osteoarthritis. There is no neural foraminal stenosis. There is no central canal stenosis. C3-C4: There is severe bilateral uncovertebral joint osteoarthritis. There is severe bilateral facet joint osteoarthritis. There is mild bilateral neural foraminal stenosis. There is mild central canal stenosis. C4-C5: There is severe bilateral uncovertebral joint osteoarthritis. There is severe bilateral facet joint osteoarthritis. There is mild bilateral neural foraminal stenosis. There is mild central canal stenosis. C5-C6: There is mild bilateral uncovertebral joint osteoarthritis. There is severe bilateral facet zane int osteoarthritis. There is mild bilateral neural foraminal stenosis. There is mild central canal st enosis. C6-C7: There is no uncovertebral joint osteoarthritis. There is severe bilateral facet joint osteoart hritis. There is mild bilateral neural foraminal stenosis. There is no central canal stenosis. C7-T1: There is no uncovertebral joint osteoarthritis. There is severe bilateral facet joint osteoart hritis. There is no neural foraminal stenosis. There is no central canal stenosis. IMPRESSION: 1. No fracture. 2. Severe cervical spondylosis. Reviewed, dictated and finalized at location A.
--- NOTE | ~2022-02-28 | CT_ITS ---
EXAMINATION:CT diagnostic chest wo con DATE: 02/28/2022 12:21 INDICATION: Chest pain. TECHNIQUE: Computed tomography (CT) of the chest was performed without intravenous contrast. Automate d exposure control and iterative reconstruction technique were employed. The dose-length product (DLP ) was 202.77 mGy-cm. COMPARISON: Chest single view 02/28/2022 FINDINGS: There is mild scarring at the lung apices. There is mild atelectasis in the lower lobes and lingula. No pleural effusion. The heart size is normal. There are coronary artery calcifications. No pericardial effusion. There is a large sliding hiatal hernia. There are cysts in left kidney measuri ng up to 2.8 cm. There is severe thoracic spondylosis. IMPRESSION: 1. Large sliding hiatal hernia. Reviewed, dictated and finalized at location A.
--- NOTE | ~2022-02-28 | XR_ITS ---
EXAMINATION: XR chest 1V portable DATE: 02/28/2022 09:07 INDICATION: Syncope. Weakness. TECHNIQUE: A single frontal view of the chest was obtained. COMPARISON: Chest 2 views 10/23/2020 FINDINGS: There is mild atelectasis in left lower lung zone. There is mild scarring at the lung apice s. No pleural effusion or pneumothorax. The heart size is normal. There is a large hiatal hernia. IMPRESSION: 1. Large hiatal hernia. 2. Mild atelectasis in left lower lung zone. Reviewed, dictated and finalized at location A.
--- NOTE | 2022-02-28 08:40 | ECG_ITS ---
Measurements Intervals [place] Rate: 72 P: 47 MT: 171 QRS: -9 QRSD: 87 T: 24 QT: 399 QTc: 437 Interpretive Statements SINUS RHYTHM NORMAL ECG COMPARED TO ECG 10/24/2020 09:26:18 NO SIGNIFICANT CHANGES Electronically Signed On 02-28-2022 11:22:53 CDT by Chetan Infante M.D.
[2022-02-28 09:23] LABS: Basophils Percent Auto 0.6 % (0.2-1.2); Hematocrit 36.4 % (37.0-47.0); Hemoglobin 11.8 g/dL (12.0-15.0); Immature Granulocyte Absolute 0.07 K/mm3 (0.00-0.031); Immature Granulocyte Percent A 1.4 % (0-0.5); Lymphocytes Absolute Auto 1.87 K/mm3 (0.9-3.2); Lymphocytes Percent Auto 37.6 % (18.3-44.2); Mean Corpuscular HGB Conc 32.4 g/dl (32-36); Mean Corpuscular Hemoglobin 31.6 pg (26-34); Mean Corpuscular Volume 97.6 fl (80-100); Mean Platelet Volume 9.4 fl (7.4-10.4); Monocytes Absolute Auto 0.4 K/mm3 (0.1-0.6); Monocytes Percent Auto 7.6 % (2.6-8.5); Neutrophils Absolute Auto 2.6 K/mm3 (1.3-6.7); Neutrophils Percent Auto 52.8 % (45.5-73.1); Platelet Count Result 246 k/mm3 (150-375); Red Blood Count 3.73 M/mm3 (4.2-5.4); Red Cell Distribution Width 12.1 % (11.5-14.5)
[2022-02-28 09:29] LABS: Alanine Aminotransferase 19 U/L (4-35); Albumin Level 4.1 g/dL (3.5-5.1); Alkaline Phosphatase 66 U/L (38-126); Anion Gap 8 mmol/L (8-16); Aspartate Amino Transferase 26 U/L (14-36); Bilirubin,Total 0.6 mg/dL (0.2-1.3); Blood Urea Nitrogen 24 mg/dL (7-17); Carbon Dioxide 27 mmol/L (22-30); Chloride 105 mmol/L (98-107); Estimated CRCL calculation 31 ml/min; Estimated Glomerular Filt Rate 43; Glucose 139 mg/dL (65-110); Lipase 155 U/L (23-300); Potassium 4.1 mmol/L (3.4-5.0); Sodium 140 mmol/L (137-145)
[2022-02-28 09:38] LABS: Prothrombin Time 12.9 Seconds (11.1-14.7)
[2022-02-28 09:39] LABS: Partial Thromboplastin Time 24.5 SECONDS (22.3-36.8)
[2022-02-28 09:41] LABS: Troponin I < 0.012 ng/mL (0.000-0.034)
[2022-02-28] MEDS: SODIUM CHLORIDE 0.9% IV 500 ML 999 ML IV CONT (10:03)
[2022-02-28] MEDS: ACETAMINOPHEN 325 MG TABLET 650 MG PO (10:10)
--- NOTE | 2022-02-28 10:22 | ED.SYNCOPE ---
HPI - Syncope General Chief Complaint: Syncope <Maricruz Messina PA-C - Last Filed: 02/28/22 13:13> Stated Complaint: syncope <JACINTA Cardona Last Filed: 02/28/22 13:13> Time Seen by Provider: 02/28/22 09:52 <JACINTA Cardona Last Filed: 02/28/22 13:13> Source: patient <JACINTA Cardona Last Filed: 02/28/22 13:13> Mode of arrival: EMS <JACINTA Cardona Last Filed: 02/28/22 13:13> Limitations: no limitations <JACINTA Cardona Last Filed: 02/28/22 13:13> History of Present Illness HPI narrative: This is an 86-year-old female that presents to the emergency department for syncopal episode. Reports she was in [employer] and she started to feel nauseous. She stood up and started walking down the aisle. Reports next thing she knew she was on the floor. Reportedly bystanders tried to do CPR. She came back to and a nurse at [employer] was asking her if she was okay. Does not report she has had a syncopal episode before. She was not having any other prodromal symptoms such as chest pain, shortness of breath, or palpitations. She does report she has some chest soreness now from the chest compressions. Denies vision changes, vomiting, or focal numbness or weakness. <JACINTA Cardona Last Filed: 02/28/22 13:13> Related Data Home Medications: Home Medications Medication Instructions Recorded Confirmed calcium carbonate [Calcium 600] 1,200 mg PO DAILY 05/23/20 02/28/22 cholecalciferol (vitamin D3) 10 mcg PO DAILY 05/23/20 02/28/22 [Vitamin D3] coenzyme Q10 [CoQ-10] 200 mg PO DAILY 05/23/20 02/28/22 niacin 500 mg PO DAILY 05/23/20 02/28/22 omega 9-jqz-mql-fish oil [Fish Oil] 1 cap PO DAILY 05/23/20 02/28/22 <JACINTA Cardona Last Filed: 02/28/22 13:13> Allergies/Adverse Reactions: Allergies Allergy/AdvReac Type Severity Reaction Status Date / Time methylprednisolone AdvReac Severe Rash Verified 09/11/21 10:02 <Maricruz Messina PA-C - Last Filed: 02/28/22 13:13> Review of Systems Review of Systems: CONSTITUTIONAL: Denies fever EYES: Denies visual changes CARDIOVASCULAR: Reports chest pain. Denies palpitations, or edema. RESPIRATORY: Denies dyspnea. GASTROINTESTINAL: Reports nausea. Denies vomiting NEUROLOGIC: Denies headache, numbness, or weakness. <Maricruz Messina PA-C - Last Filed: 02/28/22 13:13> All systems reviewed & are unremarkable except as noted in HPI and below <Maricruz Messina PA-C - Last Filed: 02/28/22 13:13> [facility] Past Medical History Medical History: Medical History CKD (chronic kidney disease) stage 3, GFR 30-59 ml/min Hyperlipidemia Hypertension <Maricruz Messina PA-C - Last Filed: 02/28/22 13:13> Surgical History Surgical History: Surgical History History of right knee joint replacement <Maricruz Messina PA-C - Last Filed: 02/28/22 13:13> Family History Family History: Family History (Updated 09/11/21 @ 10:06 by Jordyn Tran CMA) Father Hypertension Cerebrovascular accident Mother Hypertension Colon cancer Alzheimer's dementia Sibling Diabetes mellitus Daughter Colon cancer Son Colon polyp <Maricruz Messina PA-C - Last Filed: 02/28/22 13:13> Social History Social History: Social History (Updated 09/11/21 @ 10:05 by Jordyn Tran CMA) Social History: Independent, still drives, active Alcohol intake: never Substance use: never Substance use type: does not use Gender identity (if verbalized by the patient): Female Spiritual care concerns: No Agree to blood products: Yes <JACINTA Cardona Last Filed: 02/28/22 13:13> Exam Narrative: GENERAL: Elderly, well-nourished, and in no acute distress. HEAD: Normocephalic, atraumatic. EYES: PERRLA and EOMI. ENT: Nares clear, no rhinorrhea or e
[2022-02-28 12:14] LABS: Troponin I < 0.012 ng/mL (0.000-0.034)
--- NOTE | 2022-02-28 13:50 | ADMGEN ---
This patient, Caridad Mathews, was admitted to Medical Room 250-01. Patient/family oriented to hospital policies and general routines including ID bracelet, bed and alarms, visiting hours, pain management, procedures, bathroom and other care routines, personal items, smoking policy, room service/diet, and visiting hours. Information on how to activate the Rapid Response Team has been discussed. Patient/Family are encouraged to report perceived risks to care and to ask questions if they do not understand what they are told or what they should do.
--- NOTE | 2022-02-28 15:09 | PM.IMHP ---
H&P: HPI History of Present Illness Date/Time: 02/28/22 15:09 this is a 86-year-old female who presented to our emergency department after having a syncopal episode. Patient has a past medical history of chronic kidney disease, hyperlipidemia and hypertension. According to patient she was in [employer] today felt nauseated stood up to walk to the restroom and blacked out. When she woke up she noticed a lady over and was later told that CPR was performed on her. She does complain of chest pain due CPR. Patient denies any abnormal T before having her syncopal episode other than feeling nauseated. She denies any dizziness, lightheadedness, chest pains, shortness of breath, or palpitations. Vital signs 132/65, 74, 18, 98% on room air, CT of the head, CT of the spine chest x-ray unremarkable, EKG sinus rhythm with a heart rate of 72. Patient being admitted for syncope episode. The only complaint the patient has at this time is soreness for or chest area due to CPR Chief Complaint: Syncopal episode Review of Systems Review of Systems: All systems reviewed & are unremarkable except as noted in HPI and below PMFSH Past Medical History Medical History CKD (chronic kidney disease) stage 3, GFR 30-59 ml/min Hyperlipidemia Hypertension Surgical History Surgical History History of right knee joint replacement Family History Family History (Updated 09/11/21 @ 10:06 by Jordyn Tran CMA) Father Hypertension Cerebrovascular accident Mother Hypertension Colon cancer Alzheimer's dementia Sibling Diabetes mellitus Daughter Colon cancer Son Colon polyp Social History Social History (Updated 09/11/21 @ 10:05 by Jordyn Tran CMA) Social History: Independent, still drives, active Smoking packs per day: 0.2 Smoking cigarettes per day: 4.0 Years smoked: 10 Smoking pack-years: 2.00 Smoking status: Former smoker Tobacco type: cigarettes Alcohol intake: never Substance use: never Substance use type: does not use Gender identity (if verbalized by the patient): Female Spiritual care concerns: No Agree to blood products: Yes Meds Home Medications and Allergies Home Medications Medication Instructions Recorded Confirmed Type calcium carbonate [Calcium 600] 1,200 mg PO DAILY 05/23/20 02/28/22 History cholecalciferol (vitamin D3) 10 mcg PO DAILY 05/23/20 02/28/22 History [Vitamin D3] coenzyme Q10 [CoQ-10] 200 mg PO DAILY 05/23/20 02/28/22 History omega 8-ddf-tsl-fish oil [Fish Oil] 1 cap PO DAILY 05/23/20 02/28/22 History amlodipine 5 mg PO HS 02/28/22 02/28/22 History atorvastatin 20 mg PO HS 02/28/22 02/28/22 History ferrous sulfate 325 mg PO QAM 02/28/22 02/28/22 History lisinopril 40 mg PO HS 02/28/22 02/28/22 History niacin 500 mg PO HS 02/28/22 02/28/22 History Allergies Allergy/AdvReac Type Severity Reaction Status Date / Time methylprednisolone AdvReac Severe Rash Verified 09/11/21 10:02 Vital Signs Vital Signs - 24 hr 02/28/22 08:47 02/28/22 09:35 02/28/22 09:49 Temperature 98.7 F Pulse Rate 69 74 69 Respiratory Rate 18 18 18 Blood Pressure 112/55 L 116/59 L 112/53 L Pulse Oximetry 94 98 98 02/28/22 09:55 02/28/22 09:57 02/28/22 09:58 Temperature Pulse Rate 69 71 82 Respiratory Rate Blood Pressure 114/58 L 120/63 112/61 Pulse Oximetry 02/28/22 11:51 02/28/22 12:36 02/28/22 13:06 Temperature Pulse Rate 78 79 74 Respiratory Rate 18 18 18 Blood Pressure 132/67 116/65 132/65 Pulse Oximetry 98 98 98 Exam Narrative: General: Pleasant, no obvious distress noted HEENT: PERRLA, Mucous Membranes Moist and [place], Nares Patent, Sclera Clear Neck: JVD, Supple Pulmonary: Clear to Auscultation, Normal Air Movement Cardiovascular: No Murmurs, Gallops, or Rubs, Regular Rhythm, Regular Rate Abdominal: Ab
[2022-02-28 15:20] LABS: Troponin I < 0.012 ng/mL (0.000-0.034)
[2022-02-28] MEDS: FERROUS SULFATE 324 MG TABLET PO (17:15)
[2022-03-01] VITALS (10 sets, daily range): BP systolic 109–130; BP diastolic 43–70; PULSE 70–81; RESP 16–18; TEMP 36.2–37; O2SAT 95–100
--- NOTE | 2022-03-01 | ECHO_ITS ---
Patient Info Name: Caridad Mathews Age: 86 years : 1935 Gender: Female Ht: 64 in Wt: 171 lbs BSA: 1.90 m2 HR: 81 bpm BP: 109 / 59 mmHg Heart Rhythm: Sinus Rhythm Technical Quality: Fair Exam Date: 03/01/2022 1:16 PM Exam Location: [facility] Patient Status: Outpatient Admit Date: 02/28/2022 Staff Ordering Physician: Annamarie Bar PA-C Bufferer: Viv Irving RDCS Attending Provider: Annamarie Bar PA-C Referring Physician: Dipika GARLAND; Exam Type: CA echo doppler color flow Study Info Indications - syncope Complete two-dimensional, color flow and Doppler transthoracic echocardiogram is performed. Summary 1. Complete two-dimensional, color flow and Doppler transthoracic echocardiogram is performed. 2. Left ventricular chamber dimension is normal. 3. Left ventricular systolic function is normal, estimated at 60-65%. 4. The left ventricular diastolic function is grade I diastolic dysfunction. 5. E/e' 14 is mildly elevated. 6. There is mild aortic valve sclerosis. 7. There is mild to moderate tricuspid valve regurgitation. 8. No pulmonary hypertension, estimated pulmonary arterial systolic pressure is 34 mmHg. Left Ventricle E/e' 14 is mildly elevated. Left ventricular chamber dimension is normal. Left ventricular systolic function is normal, estimated at 60-65%. The left ventricular diastolic function is grade I diastolic dysfunction. Right Ventricle Right ventricular systolic function is normal and with normal TAPSE 2.3 cm. Right ventricular chamber dimension is normal. Left Atria Left atrial chamber dimension is normal. Right Atria Right atrial chamber dimension is normal. Aortic Valve The aortic valve is trileaflet. There is mild aortic valve sclerosis. There is no aortic valve stenosis. There is no aortic valve regurgitation. Pulmonic Valve There is no pulmonic regurgitation. Mitral Valve There is no mitral valve stenosis. There is no mitral valve regurgitation. Tricuspid Valve There is mild to moderate tricuspid valve regurgitation. No pulmonary hypertension, estimated pulmonary arterial systolic pressure is 34 mmHg. Pericardium/Pleural There is no pericardial effusion. Inferior Vena Cava Normal inferior vena cava with >50% collapse upon inspiration consistent with normal right atrial pressure, 5 mmHg. Aorta The aortic root size at the sinus of Valsalva is normal. Left Ventricular Outflow Tract Name Value Normal LVOT 2D LVOT Diameter 2.0 cm LVOT Doppler LVOT Peak Gradient 5 mmHg LVOT Mean Gradient 2 mmHg LVOT VTI 21 cm LVOT VTI/AV VTI Ratio 0.6 LVOT Stroke Volume 64 ml LVOT CO 4.7 l/min LVOT CI 2.6 l/min/m2 Pulmonic Valve Name Value Normal
[2022-03-01 05:46] LABS: Hematocrit 33.3 % (37.0-47.0); Hemoglobin 11.3 g/dL (12.0-15.0); Mean Corpuscular HGB Conc 33.9 g/dl (32-36); Mean Corpuscular Hemoglobin 32.8 pg (26-34); Mean Corpuscular Volume 96.8 fl (80-100); Mean Platelet Volume 9.3 fl (7.4-10.4); Platelet Count Result 224 k/mm3 (150-375); Red Blood Count 3.44 M/mm3 (4.2-5.4); Red Cell Distribution Width 12.3 % (11.5-14.5)
[2022-03-01 06:02] LABS: Alanine Aminotransferase 19 U/L (4-35); Albumin Level 3.7 g/dL (3.5-5.1); Alkaline Phosphatase 53 U/L (38-126); Anion Gap 5 mmol/L (8-16); Aspartate Amino Transferase 24 U/L (14-36); Bilirubin,Total 0.5 mg/dL (0.2-1.3); Blood Urea Nitrogen 21 mg/dL (7-17); Calcium 8.5 mg/dL (8.4-10.2); Carbon Dioxide 26 mmol/L (22-30); Chloride 108 mmol/L (98-107); Estimated CRCL calculation 37 ml/min; Estimated Glomerular Filt Rate 53; Glucose 109 mg/dL (65-110); Magnesium 2.2 mg/dL (1.6-2.3); Potassium 4.2 mmol/L (3.4-5.0); Sodium 139 mmol/L (137-145)
[2022-03-01] MEDS: OMEGA 3 POLYUNSAT FATTY ACIDS 1 GM CAP PO (08:40)
[2022-03-01] MEDS: FERROUS SULFATE 324 MG TABLET PO (08:40)
[2022-03-01] MEDS: lisinopriL 20 MG TABLET 40 MG PO (08:41)
[2022-03-01] MEDS: amLODIPine BESYLATE 5 MG TABLET PO (08:41)
[2022-03-01] MEDS: CHOLECALCIFEROL 400 UNITS TABLET (VIT D) PO (08:41)
--- NOTE | 2022-03-01 12:59 | PCCCNOTE ---
On 03/01/22, the student, [Justine Negrete ], provided care and completed [facility] documentation on this patient. I have reviewed the student's documentation and agree with the findings.
--- NOTE | 2022-03-01 14:14 | PM.DS ---
DS: Admitting Diagnosis Discharge Date 03/01/2022 Admitting Diagnosis Syncope DS: Discharge Diagnosis Discharge Diagnosis (1) Syncope: Qualifiers: Syncope type: unspecified Qualified Code(s): R55 - Syncope and collapse Code(s): R55 - Syncope and collapse Status: Acute Assessment and Plan: Patient had a syncopal episode while in [employer]osticism on Tuesday EKG on presentation showed sinus rhythm. Review of telemetry also revealed sinus rhythm Head CT showed no acute findings Carotid Doppler showed <50% stenosis of bilateral internal carotid arteries Echocardiogram reviewed with normal EF grade 1 diastolic dysfunction, no significant valvular disease Orthostatic blood pressures negative Etiology for this episode is unclear, most likely vasovagal in origin. (2) Chest pain: Qualifiers: Chest pain type: unspecified Qualified Code(s): R07.9 - Chest pain, unspecified Code(s): R07.9 - Chest pain, unspecified Status: Acute Assessment and Plan: Resolved. When the patient had syncopal episode, a bystander attempted to perform CPR on the patient. She came to right after but she did have some chest discomfort related to this (3) Hyperlipidemia: Qualifiers: Hyperlipidemia type: unspecified Qualified Code(s): E78.5 - Hyperlipidemia, unspecified Code(s): E78.5 - Hyperlipidemia, unspecified Status: Acute Assessment and Plan: Continue atorvastatin (4) Hypertension: Qualifiers: Hypertension type: essential hypertension Qualified Code(s): I10 - Essential (primary) hypertension Code(s): I10 - Essential (primary) hypertension Status: Acute Assessment and Plan: Blood pressures reviewed and were well controlled. Continue home lisinopril and amlodipine (5) CKD (chronic kidney disease) stage 3, GFR 30-59 ml/min: Qualifiers: Chronic kidney disease stage 3 subtype: stage 3b (GFR 30-44) Qualified Code(s): N18.32 - Chronic kidney disease, stage 3b Code(s): N18.30 - Chronic kidney disease, stage 3 unspecified Status: Acute Assessment and Plan: Renal function was consistent with baseline (6) Fe deficiency anemia: Qualifiers: Iron deficiency anemia type: unspecified iron deficiency Qualified Code(s): D50.9 - Iron deficiency anemia, unspecified Code(s): D50.9 - Iron deficiency anemia, unspecified Status: Acute Assessment and Plan: Hemoglobin and hematocrit were consistent with baseline. Continue p.o. ferrous sulfate DS: Summary Hospital Course Hospital Course: Date of admission: 02/28/2022 Date of discharge: 03/01/2022 Caridad Mathews is an 86-year-old female with a history of hypertension, hyperlipidemia, iron deficiency anemia, and CKD who presented to the emergency department on 02/28/2022 after having a syncopal episode while she was in gnosticism. One of her gnosticism members attempted to perform CPR on her due to very transient loss of consciousness. The patient stated that she felt nauseous while in gnosticism, therefore she got out of her Rider to walk to the bathroom when she ?went down.? She came to shortly after to someone attempting chest compressions. Patient states during the gnosticism service there is a lot of standing up, kneeling, sitting back down. She was admitted to the hospitalist service for further evaluation and management. Please see above for further details. Workup was negative. Patient was feeling significantly improved was very eager for discharge home. Given her overall improvement, she was determined to no longer require inpatient care and was discharged in hemodynamically stable condition on 03/01/2022. We discussed worrisome signs and symptoms for which to return and she was educated on her medications. She will follow-up with her PCP in 1 week. Status at Discharge Functional status at discharge: indep
== END 2022-03-01 16:15 | disposition home or self-care (01) ==
LOC: ANHED 09:52 → ANH2MED 12:46
PROVIDERS: Nurse Practitioner; Admitting Provider Family Medicine; Emergency Provider Emergency Medicine; PCP Family Medicine; Visit Provider Physician Assistant
DX: R55 Syncope and collapse (principal); R07.9 Chest pain, unspecified; D50.9 Iron deficiency anemia, unspecified; E78.5 Hyperlipidemia, unspecified; I12.9 Hypertensive chronic kidney disease with stage 1 through stage 4 chronic kidney disease, or unspecified chronic kidney disease; N18.30 Chronic kidney disease, stage 3 unspecified; Z96.651 Presence of right artificial knee joint; Z87.891 Personal history of nicotine dependence
CPT/HCPCS: 36415; 70450; 71045; 71250; 72125; 80053; 83690; 83735; 84484; 85025; 85027; 85610; 85730; 93005; 93306; 93880; 96360; 99285; A9270; G0378; J7040

== ENCOUNTER 2022-04-22 08:04 | Outpatient (CLI) | payer MEDICARE, SELFPAY ==
[2022-04-22 08:55] LABS: Hematocrit 39.3 % (37.0-47.0); Hemoglobin 12.7 g/dL (12.0-15.0); Mean Corpuscular HGB Conc 32.3 g/dl (32-36); Mean Corpuscular Hemoglobin 31.5 pg (26-34); Mean Corpuscular Volume 97.5 fl (80-100); Mean Platelet Volume 9.7 fl (7.4-10.4); Platelet Count Result 309 k/mm3 (150-375); Red Blood Count 4.03 M/mm3 (4.2-5.4); Red Cell Distribution Width 11.7 % (11.5-14.5); White Blood Count 5.7 K/mm3 (4.5-10.0)
[2022-04-22 09:08] LABS: Cholesterol 129 mg/dL (0-200); HDL Direct 37 mg/dL; Triglycerides 170 mg/dL (<150)
[2022-04-22 09:41] LABS: Iron 85 ug/dL (37-170)
[2022-04-22 09:46] LABS: LDL Cholesterol Direct 57 mg/dL
[2022-04-22 09:50] LABS: Percent Iron Saturation 28 % (20-50)
== END 2022-04-22 08:05 | disposition home or self-care (01) ==
PROVIDERS: PCP Family Medicine; Visit Provider Physician Assistant
DX: D64.9 Anemia, unspecified (principal); R07.9 Chest pain, unspecified; Z13.220 Encounter for screening for lipoid disorders; E53.8 Deficiency of other specified B group vitamins
CPT/HCPCS: 36415; 80061; 82607; 82728; 83540; 83550; 85027

== ENCOUNTER 2022-09-29 08:09 | Outpatient (CLI) | payer MEDICARE, SELFPAY ==
[2022-09-29 09:00] LABS: Hematocrit 38.6 % (37.0-47.0); Hemoglobin 12.5 g/dL (12.0-15.0); Mean Corpuscular HGB Conc 32.4 g/dl (32-36); Mean Corpuscular Hemoglobin 31.8 pg (26-34); Mean Corpuscular Volume 98.2 fl (80-100); Mean Platelet Volume 9.5 fl (7.4-10.4); Platelet Count Result 286 k/mm3 (150-375); Red Blood Count 3.93 M/mm3 (4.2-5.4); Red Cell Distribution Width 12.2 % (11.5-14.5); White Blood Count 5.6 K/mm3 (4.5-10.0)
[2022-09-29 09:09] LABS: Alanine Aminotransferase 22 U/L (6-35); Albumin Level 4.5 g/dL (3.5-5.1); Alkaline Phosphatase 52 U/L (38-126); Anion Gap 13 mmol/L (8-16); Aspartate Amino Transferase 23 U/L (14-36); Bilirubin,Total 0.7 mg/dL (0.2-1.3); Blood Urea Nitrogen 28 mg/dL (7-17); Carbon Dioxide 28 mmol/L (22-30); Chloride 101 mmol/L (98-107); Estimated Glomerular Filt Rate 43; Glucose 107 mg/dL (65-110); Potassium 3.9 mmol/L (3.4-5.0); Sodium 142 mmol/L (137-145)
[2022-09-29 09:18] LABS: Iron 94 ug/dL (37-170)
[2022-09-29 09:36] LABS: Percent Iron Saturation 28 % (20-50)
== END 2022-09-29 08:10 | disposition home or self-care (01) ==
LOC: ANHLAB 08:12
PROVIDERS: PCP Family Medicine; Visit Provider Physician Assistant
DX: Z13.1 Encounter for screening for diabetes mellitus (principal); D64.9 Anemia, unspecified
CPT/HCPCS: 36415; 80053; 83540; 83550; 85027

== ENCOUNTER 2022-12-15 12:22 | Outpatient (CLI) | payer MEDICARE, SELFPAY ==
--- NOTE | ~2022-12-15 | MM_ITS ---
EXAMINATION: MM screening sivan BI w alesha HISTORY: Screening TECHNIQUE: Craniocaudal and mediolateral oblique 3-D tomosynthesis images were obtained and synthetic 2-D images were generated. CAD analysis was submitted and interpreted. COMPARISON: Comparison to multiple prior studies sequentially, with oldest reviewed study dated 11/28. BREAST PARENCHYMAL COMPOSITION: Breast composed of scattered areas of fibroglandular density FINDINGS: There is no evidence of suspicious mass, calcification, or architectural distortion to sugg est malignancy in either breast. There has been no suspicious interval change. IMPRESSION: 1. No mammographic evidence of malignancy. 2. Recommend routine screening mammography in one year. BI-RADS Category 1: Negative Reviewed, dictated and finalized at location A. 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
== END 2022-12-15 12:23 | disposition home or self-care (01) ==
LOC: ANHIMG 12:23
PROVIDERS: PCP Family Medicine; Visit Provider Physician Assistant
DX: Z12.31 Encounter for screening mammogram for malignant neoplasm of breast (principal)
CPT/HCPCS: 77063; 77067

== ENCOUNTER 2023-02-04 09:47 | Inpatient (IN) | payer MEDICARE, SELFPAY ==
--- NOTE | ~2023-02-04 | CT_ITS ---
CT of the Abdomen and Pelvis: Indication: Abdominal pain, rectal bleeding Technique: 2.5 mm axial scans were obtained through the abdomen and pelvis following intravenous adm inistration of 100 cc of Omnipaque 350. Dose reduction technique was used on this scan by utilizing a utomated exposure control and iterative reconstruction technique. The dose-length product (DLP) was 7 35.39 mGy-cm. Findings: Scans through the lung bases demonstrate large hiatal hernia containing essentially the en tire stomach.. The liver, spleen, pancreas, gallbladder, adrenals and left kidney are within normal limits. 8 mm non obstructing right renal stone present. There are atherosclerotic calcifications of the aorta. No lym phadenopathy. There is diffuse wall thickening of the distal half of the transverse colon and the entire descending colon, with mild pericolonic inflammatory stranding. No abscess or free air. No bowel obstruction ev ident. Small fat-containing umbilical hernia noted. Images through the pelvis were performed. Urinary bladder unremarkable. No adnexal mass seen. No asci dorian. Impression: Diffuse wall thickening of the distal transverse colon and descending colon, with mild pericolonic st randing. Findings are most consistent with infectious/inflammatory colitis. Ischemic bowel volvulus l ikely, though not excluded. Large hiatal hernia containing the entire stomach. 8 mm nonobstructing right renal stone. Small fat-containing umbilical hernia. Reviewed, dictated and finalized at [facility]. Impression: Diffuse wall thickening of the distal transverse colon and descending colon, wi th mild pericolonic stranding. Findings are most consistent with infectious/inf lammatory colitis. Ischemic bowel volvulus likely, though not excluded. Large hiatal hernia containing the entire stomach. 8 mm nonobstructing right renal stone. Small fat-containing umbilical hernia.
[2023-02-04 10:12] VITALS: BP 110/54; PULSE 97; RESP 18; TEMP 37.1; O2SAT 98
[2023-02-04 10:41] LABS: Basophils Percent Auto 0.2 % (0.2-1.2); Hematocrit 40.4 % (37.0-47.0); Hemoglobin 13.4 g/dL (12.0-15.0); Immature Granulocyte Absolute 0.05 K/mm3 (0.00-0.031); Immature Granulocyte Percent A 0.4 % (0-0.5); Lymphocytes Absolute Auto 1.17 K/mm3 (0.9-3.2); Lymphocytes Percent Auto 9.2 % (18.3-44.2); Mean Corpuscular HGB Conc 33.2 g/dl (32-36); Mean Corpuscular Hemoglobin 33.1 pg (26-34); Mean Corpuscular Volume 99.8 fl (80-100); Mean Platelet Volume 9.8 fl (7.4-10.4); Monocytes Absolute Auto 1.1 K/mm3 (0.1-0.6); Monocytes Percent Auto 8.7 % (2.6-8.5); Neutrophils Absolute Auto 10.3 K/mm3 (1.3-6.7); Neutrophils Percent Auto 81.5 % (45.5-73.1); Platelet Count Result 287 k/mm3 (150-375); Red Blood Count 4.05 M/mm3 (4.2-5.4); Red Cell Distribution Width 12.2 % (11.5-14.5); White Blood Count 12.7 K/mm3 (4.5-10.0)
[2023-02-04 10:52] LABS: Alanine Aminotransferase 23 U/L (6-35); Albumin Level 4.5 g/dL (3.5-5.1); Alkaline Phosphatase 60 U/L (38-126); Anion Gap 9 mmol/L (8-16); Aspartate Amino Transferase 30 U/L (14-36); Bilirubin,Total 1.1 mg/dL (0.2-1.3); Blood Urea Nitrogen 29 mg/dL (7-17); Calcium 9.1 mg/dL (8.4-10.2); Carbon Dioxide 27 mmol/L (22-30); Chloride 103 mmol/L (98-107); Estimated CRCL calculation 29 ml/min; Estimated Glomerular Filt Rate 43; Glucose 127 mg/dL (65-110); Lipase 81 U/L (23-300); Potassium 4.3 mmol/L (3.4-5.0); Sodium 139 mmol/L (137-145)
[2023-02-04] MEDS: SODIUM CHLORIDE 0.9% IV 1,000 ML 150 ML IV CONT (13:50)
[2023-02-04 14:00] VITALS: BP 130/61; PULSE 80; RESP 16; O2SAT 97
--- NOTE | 2023-02-04 16:01 | ED.ABDPAIN ---
HPI - Abdominal Pain General Chief Complaint: Abdominal Pain Stated Complaint: n/v/d with abdominal pain x 24 hours Time Seen by Provider: 02/04/23 13:16 Source: patient Mode of arrival: ambulatory Limitations: no limitations History of Present Illness HPI narrative: 87-year-old with a history of hypertension, hyperlipidemia here with complaints of abdominal pain associated with rectal bleeding for last 2 days. Patient states that few days ago she started with nausea, vomiting and diarrhea. Secondary she started passing blood initially maroon-colored at times bright red. She also complains of lower abdominal pain. She denies any fever or chills. No previous history of diverticulosis or diverticulitis MD elicited complaint: abdominal pain Pertinent past history: none Onset (ago): day(s) (3) Pain Consistency: intermittent Location: RLQ, LLQ and suprapubic Severity: moderate Quality: cramping Radiation: none Migration to: no migration Exacerbating factors: nothing Relieving factors: nothing Associated symptoms: denies other symptoms Related Data Home Medications Medication Instructions Recorded Confirmed cholecalciferol (vitamin D3) 10 10 mcg PO DAILY 05/23/20 09/20/22 mcg (400 unit) capsule (Vitamin D3) coenzyme Q10 100 mg capsule 200 mg PO DAILY 05/23/20 09/20/22 (CoQ-10) omega 8-bbs-hwy-fish oil 1,000 mg 1 cap PO DAILY 05/23/20 09/20/22 (120 mg-180 mg) capsule (Fish Oil) ferrous sulfate 325 mg (65 mg 325 mg PO QAM 02/28/22 09/20/22 iron) tablet niacin 500 mg tablet 500 mg PO HS 02/28/22 09/20/22 ascorbic acid (vitamin C) 500 mg mg PO 03/17/22 09/20/22 capsule calcium carbonate 600 mg calcium 1,200 mg PO DAILY 03/17/22 09/20/22 (1,500 mg) tablet (Calcium) Allergies Allergy/AdvReac Type Severity Reaction Status Date / Time methylprednisolone AdvReac Severe Rash Verified 02/04/23 13:58 Review of Systems Review of Systems: All systems reviewed & are unremarkable except as noted in HPI and below Constitutional: Constitutional: Reports no additional constitutional complaints Eyes: Eyes: Reports no additional eye complaints ENT: Reports system reviewed and no additional complaints, except as documented Cardiovascular: Cardiovascular: Reports no additional cardiovascular complaints Respiratory: Respiratory: Reports no additional respiratory complaints Gastrointestinal: Gastrointestinal: Reports as per HPI Genitourinary: Genitourinary: Reports no additional female genitourinary complaints Musculoskeletal: Musculoskeletal: Reports no additional musculoskeletal complaints Integumentary/Breasts: Skin/Breast: Reports system reviewed and no additional complaints, except as docu PMFSH Past Medical History Medical History CKD (chronic kidney disease) stage 3, GFR 30-59 ml/min Hyperlipidemia Hypertension Surgical History Surgical History History of right knee joint replacement Family History Family History Father Hypertension Cerebrovascular accident Mother Hypertension Colon cancer Alzheimer's dementia Sibling Diabetes mellitus Daughter Colon cancer Son Colon polyp Social History Social History Social History: Independent, still drives, active Smoking packs per day: 0.2 Smoking cigarettes per day: 4.0 Years smoked: 10 Smoking pack-years: 2.00 Smoking status: Former smoker Tobacco type: cigarettes Alcohol intake: never Substance use: never Substance use type: does not use Lack of Transportation: No Lack of Food: Never True Current Housing: I Have Housing Concerned About Future Housing: No Difficulty Paying Gas/Electric Bills: No Difficulty Paying for Meds: No Currently Unemployed: No Education: High School Diploma/GED
[2023-02-04 16:25] LABS: Bacteria Urine None Seen /hpf; Non Pathogenic Casts 0-2; Squamous Epithelial Cell Urine None seen /hpf (Few); WBC Urine 0-5 /hpf
[2023-02-04 16:30] VITALS: BP 139/63; PULSE 83; RESP 16; O2SAT 97
[2023-02-04 16:37] LABS: Appearance Urine Clear (Clear); Bilirubin Urine Negative (Negative); Blood Urine Trace-intact (Negative); Color Urine Yellow (Yellow); Glucose Urine UA Negative (Negative); Ketones Urine Trace mg/dL (Negative); Leukocyte Esterase Ur Negative LEU/UL (Negative); Nitrate Urine Negative (Negative); Protein Urine Negative (Negative); Urobilinogen Urine 0.2 mg/dL (<2.0); pH Urine 6.5 (5.0-9.0)
[2023-02-04 16:39] LABS: Add Urine Microscopic? YES
[2023-02-04] MEDS: PIPERACILLN/TAZ 3.375GM/NS50ML 3.375 GM/50 ML BAG IVPB (16:41)
[2023-02-04 17:30] VITALS: BP 104/77; PULSE 80; RESP 16; O2SAT 99; BMI 28.9
--- NOTE | 2023-02-04 18:07 | ADMGEN ---
This patient, Caridad Mathews, was admitted to Medical Room 343-01. Patient/family oriented to hospital policies and general routines including ID bracelet, bed and alarms, visiting hours, pain management, procedures, bathroom and other care routines, personal items, smoking policy, room service/diet, and visiting hours. Information on how to activate the Rapid Response Team has been discussed. Patient/Family are encouraged to report perceived risks to care and to ask questions if they do not understand what they are told or what they should do.
[2023-02-04] MEDS: SODIUM CHLORIDE 0.9% IV 1,000 ML 125 ML IV CONT (18:13)
--- NOTE | 2023-02-04 19:00 | PM.IMHP ---
H&P: HPI History of Present Illness Date/Time: 02/04/23 19:00 Chief Complaint: Abdominal pain and bloody diarrhea. Narrative: This is a very pleasant 87-year-old female with hypertension, hyperlipidemia, and chronic kidney disease who presented to the emergency department via private vehicle from home for evaluation of abdominal pain and bloody diarrhea. Patient provides the following history. She felt fine when she got up yesterday morning and she went out to breakfast, did some housework, and ran a few errands. While shopping at a local store she suddenly developed a cramping discomfort in the lower abdomen associated with nausea. She had 3 episodes of nonbloody, non biliary emesis thereafter with 3 episodes of painless, watery diarrhea. The vomiting has ceased though she still has some mild nausea. She continues to pass bright red blood, occasionally maroon-colored, per rectum ?each time I urinate.? She had a eggs that she prepared at home yesterday and she has not eaten or worked with raw food. Those who went to breakfast with her have not had similar symptoms to her knowledge. She has never had similar symptoms. She denies recent travel, antibiotic use, and sick contacts. She denies fever, chills, and sweats. No lightheadedness or dizziness. She was afebrile on arrival to the emergency department with stable blood pressures. Pertinent labs included a WBC count of 12.7, BUN 29, creatinine 1.20, lactic acid 1.0. CT of the abdomen and pelvis shows diffuse wall thickening of the distal transverse colon and descending colon with mild pericolonic stranding consistent with infectious/inflammatory colitis. Ischemic bowel volvulus unlikely though not excluded. She was started on Zosyn and IV fluids and is being admitted for further treatment and observation. Review of Systems Review of Systems: Twelve systems were reviewed and are negative except for as per HPI. [facility] Past Medical History Medical History (Updated 02/04/23 @ 23:47 by Karolina Saenz PA-C) Chronic kidney disease, stage 3 Hyperlipidemia Hypertension Iron deficiency anemia Kidney stones Surgical History Surgical History (Updated 02/04/23 @ 23:45 by Karolina Saenz PA-C) History of cardiac catheterization History of cataract extraction with lens replacement History of right knee joint replacement (2011) Family History Family History Father Hypertension Cerebrovascular accident Mother Hypertension Colon cancer Alzheimer's dementia Sibling Diabetes mellitus Daughter Colon cancer Son Colon polyp Social History Social History (Updated 02/04/23 @ 23:45 by Karolina Saenz PA-C) Social History: Surrogate medical decision maker: Gretchen Estrada, daughter. Code status: Full code. Smoking packs per day: 0.2 Smoking cigarettes per day: 4.0 Years smoked: 10 Smoking pack-years: 2.00 Smoking status: Former smoker Tobacco type: cigarettes Alcohol intake: never Substance use: never Substance use type: does not use Lack of Transportation: No Lack of Food: Never True Current Housing: Decline to Answer Concerned About Future Housing: Decline to Answer Difficulty Paying Gas/Electric Bills: Decline to Answer Difficulty Paying for Meds: Decline to Answer Currently Unemployed: Decline to Answer Education: Decline to Answer Difficulty w/ Childcare or Family Care: Decline to Answer Additional living arrangements comments: . Lives in [place]. Independent. Spiritual care concerns: No Agree to blood products: Yes Meds Home Medications and Allergies Home Medications Medication Instructions Recorded Confirmed Type cholecalciferol (vitamin D3) 10 10 mcg PO DAILY 05/23/20 02/04/23 History mcg (400 unit) capsule (Vitamin D3) omega 2-vbr-bpe-fish oil 1,000 mg 1 cap PO DAILY 05/23/20 02/04/23 History (120 mg-180 mg) capsule (Fish Oil)
[2023-02-04 20:12] VITALS: BP 112/56; PULSE 81; RESP 20; TEMP 36.4; O2SAT 95
[2023-02-05 00:29] LABS: Hematocrit 34.4 % (37.0-47.0); Hemoglobin 11.1 g/dL (12.0-15.0)
[2023-02-05] MEDS: lisinopriL 20 MG TABLET 40 MG PO ×2 (01:06→20:21)
[2023-02-05] MEDS: PIPERACILLIN/TAZ 2.25G/NS 50ML 2.25 GM/50 ML BAG IVPB ×4 (01:06→17:41)
[2023-02-05] MEDS: ATORVASTATIN 20 MG TABLET PO ×2 (01:06→20:21)
[2023-02-05] MEDS: amLODIPine BESYLATE 5 MG TABLET PO ×2 (01:06→20:21)
[2023-02-05 04:53] VITALS: BP 107/54; PULSE 80; RESP 20; TEMP 36.7; O2SAT 93
[2023-02-05 05:38] LABS: Basophils Percent Auto 0.4 % (0.2-1.2); Hematocrit 31.7 % (37.0-47.0); Hemoglobin 10.2 g/dL (12.0-15.0); Immature Granulocyte Absolute 0.06 K/mm3 (0.00-0.031); Immature Granulocyte Percent A 0.5 % (0-0.5); Lymphocytes Absolute Auto 1.43 K/mm3 (0.9-3.2); Mean Corpuscular HGB Conc 32.2 g/dl (32-36); Mean Corpuscular Volume 99.4 fl (80-100); Monocytes Absolute Auto 0.8 K/mm3 (0.1-0.6); Monocytes Percent Auto 7.5 % (2.6-8.5); Neutrophils Absolute Auto 8.6 K/mm3 (1.3-6.7); Neutrophils Percent Auto 78.6 % (45.5-73.1); Platelet Count Result 194 k/mm3 (150-375); Red Blood Count 3.19 M/mm3 (4.2-5.4); Red Cell Distribution Width 12.2 % (11.5-14.5)
[2023-02-05 05:52] LABS: Anion Gap 5 mmol/L (8-16); Blood Urea Nitrogen 19 mg/dL (7-17); Calcium 7.6 mg/dL (8.4-10.2); Carbon Dioxide 23 mmol/L (22-30); Chloride 109 mmol/L (98-107); Estimated CRCL calculation 37 ml/min; Estimated Glomerular Filt Rate 53; Glucose 101 mg/dL (65-110); Magnesium 1.9 mg/dL (1.6-2.3); Potassium 3.9 mmol/L (3.4-5.0); Sodium 137 mmol/L (137-145)
[2023-02-05] MEDS: ASCORBIC ACID 500 MG TABLET PO (08:44)
[2023-02-05] MEDS: CALCIUM CARBONATE (OSCAL) 500 MG TABLET 1000 MG PO (08:44)
[2023-02-05] MEDS: CHOLECALCIFEROL 400 UNITS TABLET (VIT D) PO (08:44)
[2023-02-05 08:45] VITALS: PULSE 80; RESP 20; O2SAT 93
[2023-02-05] MEDS: FERROUS SULFATE 324 MG TABLET PO (08:45)
[2023-02-05] MEDS: OMEGA 3 POLYUNSAT FATTY ACIDS 1 GM CAP PO (09:43)
--- NOTE | 2023-02-05 12:40 | PM.IMPN ---
Progress Note: A&P Assessment and Plan (1) Colitis: Code(s): K52.9 - Noninfective gastroenteritis and colitis, unspecified Status: Acute (2) Rectal bleeding: Code(s): K62.5 - Hemorrhage of anus and rectum Status: Acute (3) Dehydration: Code(s): E86.0 - Dehydration Status: Acute (4) Chronic kidney disease, stage 3: Code(s): N18.30 - Chronic kidney disease, stage 3 unspecified Status: Acute (5) Hypertension: Qualifiers: Hypertension type: essential hypertension Qualified Code(s): I10 - Essential (primary) hypertension Code(s): I10 - Essential (primary) hypertension Status: Acute Plan The patient presented to the emergency department for evaluation of abdominal cramping, nausea and vomiting (resolved), and painless bloody diarrhea. Labs, imaging, and all reports were personally reviewed. CT of the abdomen and pelvis showed a large hiatal hernia and diffuse wall thickening of the distal in transverse colon and descending colon consistent with inflammatory/infectious colitis. Ischemic bowel volvulus is unlikely though not excluded. Lactic acid level was well within normal limits and vital signs have been stable. This is most likely infectious colitis and she has been started on antibiotics per antibiotic stewardship recommendations. GI has been consulted for their opinion and recommendations are appreciated. Repeat hemoglobin/hematocrit this evening to ensure that it is stable. She looks dry on exam and by labs and is being judiciously hydrated overnight. Repeat CBC and BMP in a.m. Send stool for culture as long as it is not strictly blood which she reports recently. Her home medications will be reviewed and resumed as appropriate. Subjective Date/time seen: 02/05/23 12:40 No complaints Exam Narrative: General: A well-developed, nontoxic-appearing female in the semi-Mera position in bed. Weight: 74 kg. BMI: 28.9. HEENT: PERRL, EOMI. Sclera anicteric. Tacky mucous membranes. Neck: Supple. Respiratory: Lungs are clear to auscultation bilaterally. Cardiovascular: Regular rate and rhythm with S1-S2. Gastrointestinal: Abdomen is soft and nondistended with positive bowel sounds. She is tender to palpation over the left abdomen and into the left lower quadrant. Mild guarding but no rebound tenderness. Skin: Warm and dry. No rash or lesions on limited exam. Extremities: No cyanosis, clubbing, or edema. Radial and pedal pulses intact. Neurological: Alert. Cranial nerves 2-12 are grossly intact. No gross focal deficits to casual conversation. Psychiatric: Pleasant and cooperative with normal mood and affect. Judgment and insight intact. Objective Data Vital Signs Vital Signs: Vital Signs - 24 hr 02/04/23 17:30 02/04/23 16:30 02/04/23 14:00 Temperature Pulse Rate 80 83 80 Respiratory Rate 16 16 16 Blood Pressure 104/77 139/63 130/61 Pulse Oximetry 99 97 97 02/04/23 20:12 02/05/23 04:53 Temperature 97.6 F 98.1 F Pulse Rate 81 80 Respiratory Rate 20 20 Blood Pressure 112/56 L 107/54 L Pulse Oximetry 95 93 Intake/Output Intake/Output: Intake & Output 02/02/23 02/03/23 02/04/23 02/05/23 23:59 23:59 23:59 23:59 Intake Total 1050 490 Balance 1050 490 Meds/Results Medications: Active Medications Generic Name Dose Route Start Last Admin Trade Name Freq PRN Reason Stop Dose Admin Acetaminophen 650 mg 02/04/23 15:59 Acetaminophen 325 Mg Tablet PO Q4H PRN Mild Pain (1-3) or Fever Amlodipine Besylate 5 mg 02/05/23 00:10 02/05/23 01:06 Amlodipine Besylate 5 Mg Tablet PO 5 mg HS ANTONIA Administration Ascorbic Acid 500 mg 02/05/23 09:00 02/05/23 08:44 Ascorbic Acid 500 Mg Tablet PO 500 mg DAILY ANTONIA Administration Atorvastatin Calcium 20 mg 02/05/23 00:10 02/05/23 01:06 Atorvastatin 20 Mg Tablet PO 20 mg HS ANTONIA Administration Calcium Carbonate 1,000 mg 02/05/23 09:00 03
[2023-02-05] MEDS: SODIUM CHLORIDE 0.9% IV 1,000 ML 100 ML IV CONT ×2 (12:51→23:43)
[2023-02-05 14:00] VITALS: BP 110/48; PULSE 76; RESP 20; TEMP 37.2; O2SAT 95
[2023-02-05 19:18] VITALS: BP 114/41; BP 115/53; BP 122/49; PULSE 87; RESP 18; TEMP 36.4; O2SAT 96
[2023-02-05 19:19] VITALS: BP 114/41; PULSE 87; RESP 18; TEMP 36.4; O2SAT 96
--- NOTE | 2023-02-05 21:01 | WPDGICN ---
Assessment and Plan Assessment and plan (1) Rectal bleeding: Code(s): K62.5 - Hemorrhage of anus and rectum Status: Acute Assessment and Plan: wonder if ischemic colitis vs infectious- already doing better blood cultures pending denies any more nausea and pain, will advance diet (2) Colitis: Code(s): K52.9 - Noninfective gastroenteritis and colitis, unspecified Status: Acute Assessment and Plan: probably ischemic medical treatment on abx patient prefers not do to another colonoscopy given advanced age and already feeling better (3) Chronic kidney disease, stage 3: Code(s): N18.30 - Chronic kidney disease, stage 3 unspecified Status: Acute (4) Nausea and vomiting in adult: Code(s): R11.2 - Nausea with vomiting, unspecified Status: Acute Assessment and Plan: improved GI Consult Note Consult date/time: 02/05/23 21:01 Reason for consult: bloody diarrhea HPI: Caridad Mathews is a 87 year old female with history of?hypertension, hyperlipidemia, and chronic kidney disease who presented to the emergency department with new onset of crampy abdominal pain and bloody diarrhea. Started with cramping discomfort in the lower abdomen associated with nausea and vomiting, then had diarrhea x3 followed by bright red blood and maroon-colored stool. She has never had similar symptoms and denies sick contact or recent travel, antibiotic use. She was afebrile. Labs included a WBC count of 12.7, BUN 29, creatinine 1.20, lactic acid 1.0. CT of the abdomen and pelvis shows diffuse wall thickening of the distal transverse colon and descending colon with mild pericolonic stranding consistent with infectious/inflammatory colitis. Started on abx and already much better. She used to get colonoscopies in regular basis, last time at 77 yo. Review of Systems Constitutional: Constitutional: Denies body ache(s) Eyes: Eyes: Denies blurry vision ENT: Reports Normal hearing present Cardiovascular: Cardiovascular: Denies chest pain Respiratory: Respiratory: Denies chest congestion Gastrointestinal: Gastrointestinal: Reports abdominal pain, Reports hematochezia, Reports diarrhea, Reports nausea and Reports vomiting Genitourinary: Genitourinary: Denies hematuria Musculoskeletal: Musculoskeletal: Denies myalgias Integumentary/Breasts: Skin/Breast: Denies rash Neurologic: Denies Abnormal speech present Psychiatric: Psychiatric: Denies no additional psychiatric complaints [facility] Past Medical History Medical History (Updated 02/05/23 @ 21:05 by Alli Melendrez MD) Chronic kidney disease, stage 3 Hyperlipidemia Hypertension Iron deficiency anemia Kidney stones Nausea and vomiting in adult Surgical History Surgical History (Updated 02/04/23 @ 23:45 by Karolina Saenz PA-C) History of cardiac catheterization History of cataract extraction with lens replacement History of right knee joint replacement (2011) Family History Family History Father Hypertension Cerebrovascular accident Mother Hypertension Colon cancer Alzheimer's dementia Sibling Diabetes mellitus Daughter Colon cancer Son Colon polyp Social History Social History (Updated 02/04/23 @ 23:45 by Karolina Saenz PA-C) Social History: Surrogate medical decision maker: Gretchen Estrada, daughter. Code status: Full code. Smoking packs per day: 0.2 Smoking cigarettes per day: 4.0 Years smoked: 10 Smoking pack-years: 2.00 Smoking status: Former smoker Tobacco type: cigarettes Alcohol intake: never Substance use: never Substance use type: does not use Lack of Transportation: No Lack of Food: Never True Current Housing: Decline to Answer Concerned About Future Housing: Decline to Answer Difficulty Paying Gas/Electric Bills: Decline to Answer Difficulty Paying for Meds: Dec
[2023-02-06] MEDS: PIPERACILLIN/TAZ 2.25G/NS 50ML 2.25 GM/50 ML BAG IVPB ×3 (00:30→12:27)
[2023-02-06 04:31] VITALS: BP 115/52; PULSE 77; RESP 18; TEMP 36.6; O2SAT 94
[2023-02-06] MEDS: OMEGA 3 POLYUNSAT FATTY ACIDS 1 GM CAP PO (08:37)
[2023-02-06] MEDS: FERROUS SULFATE 324 MG TABLET PO (08:37)
[2023-02-06] MEDS: CHOLECALCIFEROL 400 UNITS TABLET (VIT D) PO (08:37)
[2023-02-06] MEDS: CALCIUM CARBONATE (OSCAL) 500 MG TABLET 1000 MG PO (08:37)
[2023-02-06] MEDS: ASCORBIC ACID 500 MG TABLET PO (08:37)
[2023-02-06 08:54] VITALS: O2SAT 93
[2023-02-06] MEDS: SODIUM CHLORIDE 0.9% IV 1,000 ML 100 ML IV CONT (10:30)
--- NOTE | 2023-02-06 12:20 | PM.DS ---
DS: Admitting Diagnosis Discharge Date February 06, 2023 Admitting Diagnosis Colitis DS: Discharge Diagnosis Discharge Diagnosis (1) Colitis: Code(s): K52.9 - Noninfective gastroenteritis and colitis, unspecified Status: Acute (2) Rectal bleeding: Code(s): K62.5 - Hemorrhage of anus and rectum Status: Acute (3) Dehydration: Code(s): E86.0 - Dehydration Status: Acute (4) Chronic kidney disease, stage 3: Code(s): N18.30 - Chronic kidney disease, stage 3 unspecified Status: Acute (5) Hypertension: Qualifiers: Hypertension type: essential hypertension Qualified Code(s): I10 - Essential (primary) hypertension Code(s): I10 - Essential (primary) hypertension Status: Acute Plan The patient presented to the emergency department for evaluation of abdominal cramping, nausea and vomiting (resolved), and painless bloody diarrhea. Labs, imaging, and all reports were personally reviewed. CT of the abdomen and pelvis showed a large hiatal hernia and diffuse wall thickening of the distal in transverse colon and descending colon consistent with inflammatory/infectious colitis. Ischemic bowel volvulus is unlikely though not excluded. Lactic acid level was well within normal limits and vital signs have been stable. This is most likely infectious colitis and she has been started on antibiotics per antibiotic stewardship recommendations. GI has been consulted for their opinion and recommendations are appreciated. Repeat hemoglobin/hematocrit this evening to ensure that it is stable. She looks dry on exam and by labs and is being judiciously hydrated overnight. Repeat CBC and BMP in a.m. Send stool for culture as long as it is not strictly blood which she reports recently. Her home medications will be reviewed and resumed as appropriate. DS: Summary Hospital Course Hospital Course: Admitted for colitis, started on antibiotics did exceptionally well. Tolerating diet patient can be discharged to complete oral antibiotics. Follow-up GI Time Spent with Patient Time attestation: Total time spent providing and/or coordinating discharge services: Exam Narrative: General: A well-developed, nontoxic-appearing female in the semi-Mera position in bed. Weight: 74 kg. BMI: 28.9. HEENT: PERRL, EOMI. Sclera anicteric. Tacky mucous membranes. Neck: Supple. Respiratory: Lungs are clear to auscultation bilaterally. Cardiovascular: Regular rate and rhythm with S1-S2. Gastrointestinal: Abdomen is soft and nondistended with positive bowel sounds. She is tender to palpation over the left abdomen and into the left lower quadrant. Mild guarding but no rebound tenderness. Skin: Warm and dry. No rash or lesions on limited exam. Extremities: No cyanosis, clubbing, or edema. Radial and pedal pulses intact. Neurological: Alert. Cranial nerves 2-12 are grossly intact. No gross focal deficits to casual conversation. Psychiatric: Pleasant and cooperative with normal mood and affect. Judgment and insight intact. DS: Data Data Completed and Pending Labs on day of discharge: Preliminary micro results at discharge 02/04/23 16:34 Blood Culture - Preliminary Blood 02/04/23 16:29 Blood Culture - Preliminary Blood Discharge Plan Discharge Attending physician on discharge: Timmy Ledezma Consulting providers: lAli Melendrez Discharging Clinician: Timmy Ledezma Patient Disposition: Home, Self-Care Activity: no preference Diet: as tolerated Patient Instructions: Antibiotic Form Stand Alone Forms: General Discharge Information Follow-up/Referrals: Alli Melendrez MD [Physician] - Discharge Medications: New amoxicillin-pot clavulanate 875-125 mg tablet 1 tablet PO Q12H 5 Days Qty: 10 0RF Continued ascorbic acid (vitamin C) 500 mg capsule 500 mg PO DAILY cholecalciferol (vitamin D3) [Vitamin D3] 10 mcg (4
--- NOTE | 2023-02-06 12:39 | WPDGIPROGNO ---
Progress Note: A&P Assessment and Plan (1) Colitis: Code(s): K52.9 - Noninfective gastroenteritis and colitis, unspecified Status: Acute Assessment and Plan: improved, no more bleeding and tolerting diet on abx she can go home later today and follow-up office as needed (2) Rectal bleeding: Code(s): K62.5 - Hemorrhage of anus and rectum Status: Acute Assessment and Plan: resolved (3) Nausea and vomiting in adult: Code(s): R11.2 - Nausea with vomiting, unspecified Status: Acute Assessment and Plan: resolved Subjective Date/time seen: 02/06/23 12:39 Interval history: last bm without blood, overall much better Review of Systems Review of Systems: All systems reviewed & are unremarkable except as noted in HPI and below Exam Const: General: comfortable and no acute distress HENMT: Face/Nose/Sinus: Normal nares present Eyes: General: appearance normal, both eyes and all related structures Neck: Neck: no JVD Resp: Auscultation: clear to auscultation bilaterally Cardio: Rate: regular rate Rhythm: regular rhythm GI: Inspection: non-distended GI Palp: Yes Soft to palpation, No Tenderness to palpation present (GI) and No Guarding due to palpation present (GI) Auscultation: normal bowel sounds Skin: General skin exam: normal color Neuro: Speech: normal speech Motor exam (neuro): 5/5 motor strength present throughout Extrem: General: normal to inspection Psych: Mental Status: mental status grossly normal Objective Data Vital Signs Vital Signs: Vital Signs - 24 hr 02/05/23 14:00 02/05/23 19:18 02/05/23 19:19 Temperature 99.0 F 97.6 F 97.6 F Pulse Rate 76 87 87 Respiratory Rate 20 18 18 Blood Pressure 110/48 L 114/41 L 114/41 L Pulse Oximetry 95 96 96 Oxygen Delivery 02/05/23 19:18 02/05/23 19:18 02/05/23 20:00 Temperature Pulse Rate Respiratory Rate Blood Pressure 122/49 L 115/53 L Pulse Oximetry Oxygen Delivery Room Air 02/06/23 04:31 02/06/23 08:54 Temperature 98 F Pulse Rate 77 Respiratory Rate 18 Blood Pressure 115/52 L Pulse Oximetry 94 93 Oxygen Delivery Room Air Intake/Output Intake/Output: Intake & Output 02/03/23 02/04/23 02/05/23 02/06/23 23:59 23:59 23:59 23:59 Intake Total 1050 3000 1420 Balance 1050 3000 1420 Meds/Results Medications: Active Medications Generic Name Dose Route Start Last Admin Trade Name Freq PRN Reason Stop Dose Admin Acetaminophen 650 mg 02/04/23 15:59 Acetaminophen 325 Mg Tablet PO Q4H PRN Mild Pain (1-3) or Fever Amlodipine Besylate 5 mg 02/05/23 00:10 02/05/23 20:21 Amlodipine Besylate 5 Mg Tablet PO 5 mg HS [facility] Administration Ascorbic Acid 500 mg 02/05/23 09:00 02/06/23 08:37 Ascorbic Acid 500 Mg Tablet PO 500 mg DAILY ANTONIA Administration Atorvastatin Calcium 20 mg 02/05/23 00:10 02/05/23 20:21 Atorvastatin 20 Mg Tablet PO 20 mg HS ANTONIA Administration Calcium Carbonate 1,000 mg 02/05/23 09:00 02/06/23 08:37 Calcium Carbonate (Oscal) 500 Mg Tablet PO 1,000 mg QAM ANTONIA Administration Ferrous Sulfate 324 mg 02/05/23 12:00 02/06/23 08:37 Ferrous Sulfate 324 Mg Tablet PO 324 mg 1200 ANTONIA Administration Fish Oil 1 gm 02/05/23 09:00 02/06/23 08:37 [place] 3 Polyunsat Fatty Acids 1 Gm Cap PO 1 gm DAILY ANTONIA Administration Sodium Chloride 1,000 mls @ 100 mls/hr 02/04/23 16:00 02/06/23 10:30 Normal Saline Iv IV CONT 100 mls/hr .Q10H ANTONIA Administration Piperacillin Sod/Tazobactam Sod 2.25 gm in 50 mls @ 100 mls/hr 02/05/23 00:00 02/06/23 12:27 Zosyn 2.25 Gm/Ns 50 Ml IVPB 100 mls/hr Q6H ANTONIA Administration Lisinopril 40 mg 02/05/23 00:10 02/05/23 20:21 Lisinopril 20 Mg Tablet PO 40 mg HS ANTONIA Administration Vitamin D 400 units 02/05/23 09:00 02/06/23 08:37 Cholecalciferol 400 Units Tablet (Vit D) PO 400 units DAILY ANTONIA Admi
== END 2023-02-06 14:06 | disposition home or self-care (01) | DRG 392 ==
LOC: ANHED 16:08 → ANH3MED 02-06 12:20
PROVIDERS: Emergency Medicine; Physician Assistant; Admitting Provider Internal Medicine; Emergency Provider Family Medicine; PCP Family Medicine; Visit Provider Chiropractor
DX: A09 Infectious gastroenteritis and colitis, unspecified (principal); K62.5 Hemorrhage of anus and rectum; D50.9 Iron deficiency anemia, unspecified; E78.5 Hyperlipidemia, unspecified; E86.0 Dehydration; I12.9 Hypertensive chronic kidney disease with stage 1 through stage 4 chronic kidney disease, or unspecified chronic kidney disease; N18.30 Chronic kidney disease, stage 3 unspecified; Z87.891 Personal history of nicotine dependence; Z98.49 Cataract extraction status, unspecified eye; Z96.1 Presence of intraocular lens; Z96.651 Presence of right artificial knee joint
CPT/HCPCS: 36415; 74177; 80048; 80053; 81001; 83605; 83690; 83735; 85014; 85018; 85025; 87040; 87045; 87269; 87272; 87427; 96361; 99285; A9270; J2543; J7030; Q9967

== ENCOUNTER 2023-03-04 08:06 | Outpatient (CLI) | payer MEDICARE, SELFPAY ==
[2023-03-04 09:48] LABS: Anion Gap 5 mmol/L (8-16); Blood Urea Nitrogen 25 mg/dL (7-17); Calcium 9.4 mg/dL (8.4-10.2); Carbon Dioxide 32 mmol/L (22-30); Chloride 104 mmol/L (98-107); Estimated Glomerular Filt Rate 43; Glucose 107 mg/dL (65-110); Potassium 4.4 mmol/L (3.4-5.0); Sodium 141 mmol/L (137-145)
== END 2023-03-04 08:07 | disposition home or self-care (01) ==
LOC: ANHLAB 08:08
PROVIDERS: PCP Family Medicine; Visit Provider Physician Assistant
DX: N18.30 Chronic kidney disease, stage 3 unspecified (principal)
CPT/HCPCS: 36415; 80048

== ENCOUNTER 2023-09-27 07:32 | Outpatient (CLI) | payer MEDICARE, SELFPAY ==
[2023-09-27 07:50] LABS: Hematocrit 37.3 % (37.0-47.0); Hemoglobin 11.9 g/dL (12.0-15.0); Mean Corpuscular HGB Conc 31.9 g/dl (32-36); Mean Corpuscular Hemoglobin 31.8 pg (26-34); Mean Corpuscular Volume 99.7 fl (80-100); Mean Platelet Volume 9.3 fl (7.4-10.4); Platelet Count Result 261 k/mm3 (150-375); Red Blood Count 3.74 M/mm3 (4.2-5.4); Red Cell Distribution Width 12.1 % (11.5-14.5); White Blood Count 4.7 K/mm3 (4.5-10.0)
[2023-09-27 08:09] LABS: Alanine Aminotransferase 23 U/L (6-35); Albumin Level 4.3 g/dL (3.5-5.1); Alkaline Phosphatase 59 U/L (38-126); Anion Gap 11 mmol/L (8-16); Aspartate Amino Transferase 28 U/L (14-36); Bilirubin,Total 0.6 mg/dL (0.2-1.3); Blood Urea Nitrogen 28 mg/dL (7-17); Calcium 9.2 mg/dL (8.4-10.2); Carbon Dioxide 27 mmol/L (22-30); Chloride 104 mmol/L (98-107); Cholesterol 143 mg/dL (0-200); Estimated Glomerular Filt Rate 43; Glucose 116 mg/dL (65-110); HDL Direct 44 mg/dL; Potassium 4.3 mmol/L (3.4-5.0); Sodium 142 mmol/L (137-145); Triglycerides 163 mg/dL (<150)
[2023-09-27 08:19] LABS: LDL Cholesterol Direct 61 mg/dL
== END 2023-09-27 07:33 | disposition home or self-care (01) ==
LOC: ANHLAB 07:34
PROVIDERS: PCP Family Medicine; Visit Provider Physician Assistant
DX: E78.5 Hyperlipidemia, unspecified (principal); I10 Essential (primary) hypertension; Z13.1 Encounter for screening for diabetes mellitus; D64.9 Anemia, unspecified; Z13.220 Encounter for screening for lipoid disorders
CPT/HCPCS: 36415; 80053; 80061; 85027

== ENCOUNTER 2023-11-11 08:31 | Emergency (ER) | payer MEDICARE, SELFPAY ==
--- NOTE | 2023-11-11 08:53 | ED.SKABFB ---
HPI - Skin/Abscess/Foreign Bdy General Chief complaint: Skin/Abscess/Foreign Body Stated complaint: right side forehead irritation Source: patient Mode of arrival: ambulatory Limitations: no limitations History of Present Illness HPI narrative: 88-year-old female presented for concern of skin lesion to the right side of her face which she 1st noticed about 2 weeks ago. Site is skin colored, oval shaped and raised. She denies itching, drainage, or pain to the site. She denies any other skin concerns at this time. She has not applied anything to the site. Related Data Home Medications Medication Instructions Recorded Confirmed cholecalciferol (vitamin D3) 10 10 mcg PO DAILY 05/23/20 10/10/23 mcg (400 unit) capsule (Vitamin D3) omega 2-ida-nwe-fish oil 1,000 mg 1 cap PO DAILY 05/23/20 10/10/23 (120 mg-180 mg) capsule (Fish Oil) ferrous sulfate 325 mg (65 mg 325 mg PO QAM 02/28/22 10/10/23 iron) tablet ascorbic acid (vitamin C) 500 mg 500 mg PO DAILY 03/17/22 10/10/23 capsule calcium carbonate 600 mg calcium 1,200 mg PO DAILY 03/17/22 10/10/23 (1,500 mg) tablet (Calcium) L.paracasei,rhamnosus-B.animalis 1 cap PO DAILY 04/04/23 10/10/23 11 billion cell-vit C 15 mg capsule (Daily Probiotic (4 Strains)) Allergies Allergy/AdvReac Type Severity Reaction Status Date / Time methylprednisolone AdvReac Severe Rash Verified 11/11/23 08:40 Review of Systems Review of Systems: CONSTITUTIONAL: Denies body aches, fever, chills, or sweats. EYES: Denies visual changes, redness, or discharge. ENT: Denies rhinorrhea, congestion CARDIOVASCULAR: Denies chest pain, palpitations, or edema. RESPIRATORY: Denies cough or dyspnea. GASTROINTESTINAL: Denies abdominal pain, nausea, vomiting, or diarrhea. SKIN: reports skin lesion to face MUSCULOSKELETAL: Denies back pain, joint pain, or myalgia. NEUROLOGIC: Denies headache, numbness, tingling, or weakness. [facility] Past Medical History Medical History Chronic kidney disease, stage 3 Hyperlipidemia Hypertension Iron deficiency anemia Kidney stones Nausea and vomiting in adult Surgical History Surgical History History of cardiac catheterization History of cataract extraction with lens replacement History of right knee joint replacement (2011) Family History Family History Father Hypertension Cerebrovascular accident Mother Hypertension Colon cancer Alzheimer's dementia Sibling Diabetes mellitus Daughter Colon cancer Son Colon polyp Cancer of kidney Social History Social History Social History: Surrogate medical decision maker: Gretchen Estrada, daughter. Code status: Full code. Smoking packs per day: 0.2 Smoking cigarettes per day: 4.0 Years smoked: 10 Smoking pack-years: 2.00 Smoking status: Former smoker Tobacco type: cigarettes Smoking end date: 11/14/1963 Alcohol intake: never Substance use: never Substance use type: does not use Lack of Transportation: No Lack of Food: Never True Current Housing: Decline to Answer Concerned About Future Housing: Decline to Answer Difficulty Paying Gas/Electric Bills: Decline to Answer Difficulty Paying for Meds: Decline to Answer Currently Unemployed: Decline to Answer Education: Decline to Answer Difficulty w/ Childcare or Family Care: Decline to Answer Additional living arrangements comments: . Lives in [place]. Independent. Spiritual care concerns: No Agree to blood products: Yes Comments At time of signature, I have reviewed and agree with nursing past medical, surgical, social and family history unless otherwise noted. Please see nursing chart for further information. There is no relevant family history
[2023-11-11 08:56] VITALS: BP 104/49; PULSE 86; RESP 16; TEMP 36.9; O2SAT 98
== END 2023-11-11 09:01 | disposition home or self-care (01) ==
PROVIDERS: Emergency Provider Nurse Practitioner Family; PCP Family Medicine
DX: L98.9 Disorder of the skin and subcutaneous tissue, unspecified (principal); Z87.891 Personal history of nicotine dependence; I12.9 Hypertensive chronic kidney disease with stage 1 through stage 4 chronic kidney disease, or unspecified chronic kidney disease; N18.30 Chronic kidney disease, stage 3 unspecified; E78.5 Hyperlipidemia, unspecified; D50.9 Iron deficiency anemia, unspecified; Z96.1 Presence of intraocular lens; Z98.42 Cataract extraction status, left eye; Z98.41 Cataract extraction status, right eye; Z96.651 Presence of right artificial knee joint
CPT/HCPCS: 99211; G0463

== ENCOUNTER 2024-01-02 13:55 | Outpatient (CLI) | payer MEDICARE, SELFPAY ==
--- NOTE | ~2024-01-02 | MM_ITS ---
EXAMINATION: MM screening sivan BI w alesha HISTORY: Screening TECHNIQUE: Craniocaudal and mediolateral oblique 3-D tomosynthesis images were obtained and synthetic 2-D images were generated. CAD analysis was submitted and interpreted. COMPARISON: Comparison to multiple prior studies sequentially, with oldest reviewed study dated 12/05. BREAST PARENCHYMAL COMPOSITION: There are scattered areas of fibroglandular density. FINDINGS: There is no evidence of suspicious mass, calcification, or architectural distortion to sugg est malignancy in either breast. There has been no suspicious interval change. IMPRESSION: 1. No mammographic evidence of malignancy. 2. Recommend routine screening mammography in one year. BI-RADS Category 1: Negative Reviewed, dictated and finalized at location A. RITY ADVISOR
== END 2024-01-02 13:56 | disposition home or self-care (01) ==
PROVIDERS: PCP Family Medicine; Visit Provider Family Medicine
DX: Z12.31 Encounter for screening mammogram for malignant neoplasm of breast (principal)
CPT/HCPCS: 77063; 77067

== ENCOUNTER 2024-04-20 07:55 | Outpatient (CLI) | payer MEDICARE, SELFPAY ==
[2024-04-20 08:46] LABS: Basophils Percent Auto 0.7 % (0.2-1.2); Hematocrit 38.3 % (37.0-47.0); Hemoglobin 11.9 g/dL (12.0-15.0); Immature Granulocyte Absolute 0.03 K/mm3 (0.00-0.031); Immature Granulocyte Percent A 0.7 % (0-0.5); Lymphocytes Absolute Auto 1.65 K/mm3 (0.9-3.2); Lymphocytes Percent Auto 35.9 % (18.3-44.2); Mean Corpuscular HGB Conc 31.1 g/dl (32-36); Mean Corpuscular Hemoglobin 31.5 pg (26-34); Mean Corpuscular Volume 101.3 fl (80-100); Mean Platelet Volume 9.6 fl (7.4-10.4); Monocytes Absolute Auto 0.4 K/mm3 (0.1-0.6); Monocytes Percent Auto 7.8 % (2.6-8.5); Neutrophils Absolute Auto 2.5 K/mm3 (1.3-6.7); Neutrophils Percent Auto 54.9 % (45.5-73.1); Platelet Count Result 286 k/mm3 (150-375); Red Blood Count 3.78 M/mm3 (4.2-5.4); Red Cell Distribution Width 12.6 % (11.5-14.5); White Blood Count 4.6 K/mm3 (4.5-10.0)
[2024-04-20 10:21] LABS: Alanine Aminotransferase 18 U/L (6-35); Albumin Level 4.3 g/dL (3.5-5.1); Alkaline Phosphatase 54 U/L (38-126); Anion Gap 5 mmol/L (4-12); Aspartate Amino Transferase 24 U/L (14-36); Bilirubin,Total 0.7 mg/dL (0.2-1.3); Blood Urea Nitrogen 24 mg/dL (7-17); Calcium 9.3 mg/dL (8.4-10.2); Carbon Dioxide 30 mmol/L (22-30); Chloride 107 mmol/L (98-107); Cholesterol 133 mg/dL (0-200); Estimated Glomerular Filt Rate 39; Glucose 109 mg/dL (65-110); Potassium 4.1 mmol/L (3.4-5.0); Sodium 142 mmol/L (137-145); Triglycerides 165 mg/dL (<150)
[2024-04-20 10:31] LABS: LDL Cholesterol Direct 66 mg/dL
[2024-04-20 11:48] LABS: HDL Direct 44 mg/dL
== END 2024-04-20 07:56 | disposition home or self-care (01) ==
PROVIDERS: PCP Family Medicine; Visit Provider Student in an Organized Health Care Education/Training Program
DX: D50.9 Iron deficiency anemia, unspecified (principal); D64.9 Anemia, unspecified; E78.5 Hyperlipidemia, unspecified
CPT/HCPCS: 36415; 80053; 80061; 84439; 84443; 85025

== ENCOUNTER 2024-10-12 07:51 | Outpatient (CLI) | payer MEDICARE, SELFPAY ==
[2024-10-12 08:21] LABS: Basophils Absolute Auto 0.1 K/mm3 (0.0-0.1); Basophils Percent Auto 0.9 % (0.2-1.2); Eosinophils Percent Auto 0.2 % (0-4.4); Hematocrit 37.9 % (37.0-47.0); Hemoglobin 11.8 g/dL (12.0-15.0); Immature Granulocyte Absolute 0.03 K/mm3 (0.00-0.031); Immature Granulocyte Percent A 0.5 % (0-0.5); Lymphocytes Absolute Auto 1.83 K/mm3 (0.9-3.2); Mean Corpuscular HGB Conc 31.1 g/dl (32-36); Mean Corpuscular Hemoglobin 31.1 pg (26-34); Mean Corpuscular Volume 99.7 fl (80-100); Mean Platelet Volume 9.3 fl (7.4-10.4); Monocytes Absolute Auto 0.5 K/mm3 (0.1-0.6); Monocytes Percent Auto 8.3 % (2.6-8.5); Neutrophils Absolute Auto 3.2 K/mm3 (1.3-6.7); Neutrophils Percent Auto 57.1 % (45.5-73.1); Platelet Count Result 264 k/mm3 (150-375); Red Cell Distribution Width 12.4 % (11.5-14.5); White Blood Count 5.6 K/mm3 (4.5-10.0)
[2024-10-12 08:34] LABS: Alanine Aminotransferase 19 U/L (6-35); Albumin Level 4.3 g/dL (3.5-5.1); Alkaline Phosphatase 63 U/L (38-126); Anion Gap 9 mmol/L (4-12); Aspartate Amino Transferase 21 U/L (14-36); Bilirubin,Total 0.7 mg/dL (0.2-1.3); Blood Urea Nitrogen 27 mg/dL (7-17); Calcium 9.2 mg/dL (8.4-10.2); Carbon Dioxide 27 mmol/L (22-30); Chloride 105 mmol/L (98-107); Cholesterol 131 mg/dL (0-200); Estimated Glomerular Filt Rate 36; Glucose 114 mg/dL (65-110); HDL Direct 49 mg/dL; Potassium 4.5 mmol/L (3.4-5.0); Sodium 141 mmol/L (137-145); Triglycerides 139 mg/dL (<150)
[2024-10-12 08:39] LABS: Iron 82 ug/dL (37-170)
[2024-10-12 08:42] LABS: Percent Iron Saturation 28 % (20-50)
[2024-10-12 08:45] LABS: LDL Cholesterol Direct 44 mg/dL
== END 2024-10-12 07:52 | disposition home or self-care (01) ==
LOC: ANHLAB 07:54
PROVIDERS: PCP Family Medicine; Visit Provider Family Medicine
DX: E11.22 Type 2 diabetes mellitus with diabetic chronic kidney disease (principal); N18.30 Chronic kidney disease, stage 3 unspecified; E78.2 Mixed hyperlipidemia; E03.9 Hypothyroidism, unspecified; D50.9 Iron deficiency anemia, unspecified
CPT/HCPCS: 36415; 80053; 80061; 82728; 83540; 83550; 84443; 85025

== ENCOUNTER 2024-10-19 09:10 | Outpatient (CLI) | payer MEDICARE, SELFPAY ==
--- NOTE | ~2024-10-19 | XR_ITS ---
SINGLE AP VIEW PELVIS Ordering provider: Kassy Rae PA-C History: . M79.18 - Myalgia, other site . Comparison: None. FINDINGS: BONES: No acute fracture or dislocation. 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 SACROILIAC JOINT SPACES/LUMBAR SPINE: The sacroiliac joint spaces are normal. Mild degenerative ribera es of the visualized lower lumbar spine. PUBIC SYMPHYSIS: Pubic symphysitis. SOFT TISSUES: Normal. IMPRESSION: No acute osseous abnormality pelvis. Reviewed, dictated and finalized at location A. OR PAINTER
[2024-10-19 10:33] LABS: Add Urine Microscopic? YES; Appearance Urine Clear (Clear); Bacteria Urine None Seen /hpf; Bilirubin Urine Negative (Negative); Blood Urine Negative (Negative); Color Urine Yellow (Yellow); Glucose Urine UA Negative (Negative); Ketones Urine Negative (Negative); Leukocyte Esterase Ur 1+ LEU/UL (Negative); Need Manual Microscopic Reviewed; Nitrate Urine Negative (Negative); Non Pathogenic Casts 0-2; Protein Urine Negative (Negative); RBC Urine 0-2 /hpf (0-2); Specific Grav Ur 1.014 (1.001-1.035); Squamous Epithelial Cell Urine None Seen /hpf (Few); Urobilinogen Urine 0.2 mg/dL (<2.0); WBC Urine 0-5 /hpf (0-3)
== END 2024-10-19 09:11 | disposition home or self-care (01) ==
PROVIDERS: PCP Family Medicine; Visit Provider Student in an Organized Health Care Education/Training Program
DX: M79.18 Myalgia, other site (principal); N18.30 Chronic kidney disease, stage 3 unspecified; Z79.899 Other long term (current) drug therapy
CPT/HCPCS: 72170; 81001; 87086

== ENCOUNTER 2025-02-25 09:33 | Outpatient (CLI) | payer MEDICARE, SELFPAY ==
--- NOTE | ~2025-02-25 | MM_ITS ---
EXAMINATION: MM screening sivan BI w alesha HISTORY: Screening TECHNIQUE: Craniocaudal and mediolateral oblique 3-D tomosynthesis images were obtained and synthetic 2-D images were generated. CAD analysis was submitted and interpreted. COMPARISON: Comparison to multiple prior studies sequentially, with oldest reviewed study dated 12/10. BREAST PARENCHYMAL COMPOSITION: Not dense: There are scattered areas of fibroglandular density. FINDINGS: There is no evidence of suspicious mass, calcification, or architectural distortion to sugg est malignancy in either breast. There has been no suspicious interval change. IMPRESSION: 1. No mammographic evidence of malignancy. 2. Recommend routine screening mammography in one year. BI-RADS Category 1: Negative Reviewed, dictated and finalized at location B.
--- OUTSIDE RECORDS SUMMARY | 2025-02-25 10:27 | XMS_ITS | Referral Summary ---
Author Organization [facility] [address] Address [address] [place] [address] Care Team Providers Care Senior Solutions Architect Name Role Phone Elena Medina MD Primary Care Provider [phone] Allergies No known active allergies Medications amLODIPine (NORVASC) 5 mg tablet Take 5 mg by mouth daily 9 Active atorvastatin (LIPITOR) 20 mg tablet Take 20 mg by mouth daily 9 Active lisinopril (PRINIVIL,ZESTR IL) 40 mg tablet Take 40 mg by mouth daily 9 Active niacin 500 mg tablet Take 500 mg by mouth daily with breakfast Active calcium carbonate (CALCIUM 500 ORAL) Take 1,200 mg by mouth daily Active omega 1-yxt-acj-fish oil 1,000 mg (120 mg-180 mg) capsule Active coenzyme Q10 10 mg capsule Take by mouth daily Active cholecalciferol (VITAMIN D-3) 400 unit capsule Active ascorbic acid (VITAMIN C) 500 mg tablet,chewable Acti ve Active Problems Problem Noted Date Diagnosed Date SVT (supraventricular tachycardia) 07/22/2022 Syncope and collapse 07/22/2022 Shortness of breath 11/15/2019 Social History Tobacco Use Types Packs/Day Years Used Date Smoking Tobacco: Never Smokeless Tobacco: Never Tobacco Cessation:Counseling Given: Not Answered Alcohol Use Standard Drinks/Week Comments Yes 0 (1 standard drink = 0.6 oz pur e alcohol) Personal Safety Answer Date Recorded Getting School Help Needed Not on file 10/28 Comments Unknown Sex and Gender Information Value Date Recorded Sex Assigned at Not on file 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 Gender Identity Not on file Sexual Orientation Not on file Last Filed Vital Signs Vital Sign Reading Time Taken Comments Blood Pressure 96/58 07/22/2022 8:43 AM CDT Pulse 95 07/22/2022 8:43 AM CDT Temperature 36.5 C (97.7 F) 08/20/2014 1:54 PM CDT Respiratory Rate - - Oxygen Saturation 96% 07/22/2022 8:43 AM CDT Inhaled Oxygen Concentration - - Weight 74.4 kg (164 lb) 07/22/2022 8:43 AM CDT Height 160 cm (5' 3 ) 07/22/2022 8:43 AM CDT Body Mass Index 29.05 07/22/2022 8:43 AM CDT Plan of Treatment Not on file Insurance ([address] [address] MEDICARE [facility] Care Teams Senior Solutions Architect Relationship Specialty Start Date End Date Elena Medina MD PCP - General Family Medicine 03/15/22
--- OUTSIDE RECORDS SUMMARY | 2025-02-25 10:27 | XMS_ITS | Clinical Summary ---
Author Organization [facility] [address] Address [address] [place] [address] Care Team Providers Care Biological Science Aide Name Role Phone Elena Medina MD Primary Care Provider [phone] Allergies No known active allergies Medications amLODIPine [...] 1,200 mg by mouth daily Active omega 1-rvq-wlr-fish oil 1,000 mg (120 mg-180 mg) capsule Active coenzyme Q10 10 mg capsule Take by mouth daily Active cholecalciferol (VITAMIN D-3) 400 unit capsule Active ascorbic acid (VITAMIN C) 500 mg tablet,chewable Acti ve Active Problems Problem Noted Date Diagnosed Date SVT (supraventricular tachycardia) 07/22/2022 Syncope and collapse 07/22/2022 Shortness of breath 11/15/2019 Surgical History Surgery Date Site/Laterality Comments KNEE SURGERY Right Medical History Medical History Date Comments Hypertension Hyperlipidemia Cataracts, bilateral Family History Medical History Relation Name Comments Dementia Brother Parkinsonism Brother Stroke Father Cancer Mother Dementia Mother Kidney failure Sister Relation Name Status Comments Brother Alive Father (Age 62) Mother (Age 86) Sister Social History Tobacco Use Types Packs/Day Years [...] on file 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 Gender Identity Not on file Sexual Orientation Not on file Obstetrics History Last Filed Vital Signs Vital Sign Reading [...] 07/22/2022 8:43 AM CDT Plan of Treatment Health Maintenance Due Date Last Done Comments Depression Screening 1937 Fall Risk Assessment 1935 DTaP/Tdap/Td Vaccine (1 - Tdap) 1948 Hepatitis B Screening 1955 Zoster Vaccine (1 of 2) 1987 Well Visit 65+ 2002 Influenza Vaccine (#1) 2024 08/13/2018, 2016 Pneumococcal vaccine 65+ Completed 10/06/2017, 09/15 Insurance MEDICARE [facility] Care Teams Biological Science Aide Relationship Specialty Start Date End Date Elena Medina MD PCP - General Family Medicine 03/15/22
== END 2025-02-25 09:34 | disposition home or self-care (01) ==
LOC: ANHIMG 09:35
PROVIDERS: PCP Family Medicine; Visit Provider Family Medicine
DX: Z12.31 Encounter for screening mammogram for malignant neoplasm of breast (principal)
CPT/HCPCS: 77063; 77067

== ENCOUNTER 2025-10-28 07:37 | Outpatient (CLI) | payer MEDICARE, SELFPAY ==
--- NOTE | 2025-10-28 07:58 | ECG_ITS ---
Test Date: 2025-10-28 08:13:27 Measurements Intervals [place] Rate: 73 P: 23 OR: 162 QRS: -1 QRSD: 78 T: 11 QT: 363 QTc: 400 Interpretive Statements SINUS RHYTHM CONSIDER INFERIOR INFARCT, AGE INDETERMINATE BASELINE ARTIFACT- I, II, III, AVR, AVL, AVF ABNORMAL ECG No previous ECG available for comparison Electronically Signed On 10-28-2025 08:15:01 SECURITIES RESEARCH ANALYST by Clayton Grullon D.O.
[2025-10-28 08:03] LABS: Hematocrit 33.6 % (37.0-47.0); Hemoglobin 10.5 g/dL (12.0-15.0); Immature Granulocyte Percent A 0.6 % (0-0.5); Lymphocytes Absolute Auto 1.76 K/mm3 (0.9-3.2); Mean Corpuscular HGB Conc 31.3 g/dl (32-36); Mean Corpuscular Hemoglobin 31.3 pg (26-34); Mean Corpuscular Volume 100.0 fl (80-100); Nucleated Red Blood Cells Absolute Auto 0.000 K/mm3 (0.0-0.012); Nucleated Red Blood Cells Perc 0.0 % (0.0-0.2); Platelet Count Result 281 k/mm3 (150-375); Red Blood Count 3.36 M/mm3 (4.2-5.4); White Blood Count 5.2 K/mm3 (4.5-10.0)
[2025-10-28 08:28] LABS: Alanine Aminotransferase 18 U/L (6-35); Albumin Level 4.1 g/dL (3.5-5.1); Alkaline Phosphatase 53 U/L (38-126); Anion Gap 6 mmol/L (4-12); Aspartate Amino Transferase 23 U/L (14-36); Bilirubin,Total 0.5 mg/dL (0.2-1.3); Blood Urea Nitrogen 30 mg/dL (7-17); Calcium 9.5 mg/dL (8.4-10.2); Carbon Dioxide 27 mmol/L (22-30); Chloride 106 mmol/L (98-107); Cholesterol 130 mg/dL (0-200); Estimated Glomerular Filt Rate 41; Glucose 110 mg/dL (65-110); HDL Direct 48 mg/dL; Potassium 4.2 mmol/L (3.4-5.0); Sodium 139 mmol/L (137-145); Total Protein 7.0 g/dL (6.3-8.2); Triglycerides 158 mg/dL (<150)
[2025-10-28 09:00] LABS: Thyroid Stimulating Hormone Reflex 2.410 uIU/mL (0.465-4.68)
== END 2025-10-28 07:38 | disposition home or self-care (01) ==
DX: R00.2 Palpitations (principal); R94.31 Abnormal electrocardiogram [ECG] [EKG]; E78.2 Mixed hyperlipidemia; R53.83 Other fatigue
CPT/HCPCS: 36415; 80053; 80061; 84443; 85025; 93005

== ENCOUNTER 2025-11-09 09:46 | Emergency (ER) | payer MEDICARE, SELFPAY ==
[2025-11-09] VITALS (12 sets, daily range): BP systolic 73–106; BP diastolic 37–51; PULSE 70–92; RESP 11–17; TEMP 36.8; O2SAT 92–96
--- NOTE | ~2025-11-09 | XR_ITS ---
Examination: XR chest 1V portable Clinical History: fall Comparison: 02/28/2022 Technique: Portable AP Findings: Heart size normal. Lungs clear. No acute bony abnormality. Large hiatal hernia. IMPRESSION: 1. No acute cardiopulmonary findings given portable technique. 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
--- NOTE | ~2025-11-09 | CT_ITS ---
CT HEAD NON-CONTRAST Clinical History: intractable new headache Comparison: 02/28/2022 Technique: Unenhanced axial images skull base to vertex Coronal, sagittal reformats CT images acquired with automatic exposure control for dose reduction DLP: 681 mGy-cm Findings: Mild white matter changes from chronic microvascular ischemic disease Sulci, ventricles: Unremarkable. No intracerebral hemorrhage. No evidence acute territorial infarct. No mass effect, midline shift. Bony calvarium intact. Visualized paranasal sinuses: Clear. Mastoid air cells: Clear. IMPRESSION: 1. No acute intracranial findings. 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
--- NOTE | 2025-11-09 09:57 | ECG_ITS ---
Test Date: 2025-11-09 10:06:34 Measurements Intervals [place] Rate: 77 P: 0 VA: 153 QRS: -16 QRSD: 84 T: 12 QT: 373 QTc: 422 Interpretive Statements SINUS RHYTHM DELAYED PRECORDIAL R/S TRANSITION VOLTAGE CRITERIA FOR LVH CONSIDER INFERIOR INFARCT, AGE INDETERMINATE ABNORMAL ECG Compared to ECG 10/28/2025 08:13:27 NO SIGNIFICANT CHANGE Electronically Signed On 11-09-2025 21:15:43 ASSISTANT TENNIS PROFESSIONAL by Clayton Grullon D.O.
[2025-11-09 10:23] LABS: Hematocrit 31.5 % (37.0-47.0); Hemoglobin 9.7 g/dL (12.0-15.0); Immature Granulocyte Percent A 0.7 % (0-0.5); Lymphocytes Absolute Auto 0.91 K/mm3 (0.9-3.2); Mean Corpuscular HGB Conc 30.8 g/dl (32-36); Mean Corpuscular Hemoglobin 31.2 pg (26-34); Mean Corpuscular Volume 101.3 fl (80-100); Nucleated Red Blood Cells Absolute Auto 0.000 K/mm3 (0.0-0.012); Nucleated Red Blood Cells Perc 0.0 % (0.0-0.2); Platelet Count Result 240 k/mm3 (150-375); Red Blood Count 3.11 M/mm3 (4.2-5.4); White Blood Count 4.2 K/mm3 (4.5-10.0)
--- NOTE | 2025-11-09 10:30 | ED.DIZZY ---
HPI - Dizziness General Chief Complaint: Syncope Stated Complaint: syncopal Time Seen by Provider: 11/09/25 10:27 History of Present Illness HPI Narrative: 89-year-old female presents emergency department a syncopal episode. Patient states that she has had a nasty cold for the last week or so. Patient had woke up this morning and started feeling better and she got in a hot shower when she got out was drying herself off she felt like she was going to pass out the next thing she remembers she was on the ground with someone from standing over her. She denies any palpitations or shortness of breath no chest pain no urinary complaints abdominal pain or nausea no vomiting no anorexia. Patient states she has had decreased p.o. intake the last couple days however. She denies any structural heart disease coronary artery disease. Denies any lateralizing weakness or paresthesias no dizziness vertigo double vision trouble swallowing Related Data Home Medications ?Medication ?Instructions ?Recorded ?Confirmed ?Last Taken ?Type cholecalciferol (vitamin D3) 10 10 mcg PO DAILY 05/23/20 10/21/25 02/04/23 History mcg (400 unit) capsule (Vitamin D3) omega 4-caf-sgz-fish oil 1,000 mg 1 cap PO DAILY 05/23/20 10/21/25 02/04/23 History (120 mg-180 mg) capsule (Fish Oil) ferrous sulfate 325 mg (65 mg 325 mg PO QAM 02/28/22 10/21/25 02/04/23 History iron) tablet ascorbic acid (vitamin C) 500 mg 500 mg PO DAILY 03/17/22 10/21/25 02/04/23 History capsule calcium carbonate (Calcium 600) 1,200 mg PO DAILY 03/17/22 10/21/25 02/04/23 History L.paracasei,rhamnosus-B.animalis 1 cap PO DAILY 04/04/23 10/21/25 Unknown History 11 billion cell-vit C 15 mg capsule (Daily Probiotic (4 Strains)) Allergies Allergy/AdvReac Type Severity Reaction Status Date / Time methylprednisolone AdvReac Severe Rash Verified 11/09/25 09:57 Review of Systems Review of Systems: All systems reviewed & are unremarkable except as noted in HPI and below PMFSH Past Medical History Medical History Nausea and vomiting in adult Iron deficiency anemia Kidney stones Chronic kidney disease, stage 3 Hypertension Hyperlipidemia Surgical History Surgical History History of cataract extraction with lens replacement History of cardiac catheterization History of right knee joint replacement (2011) Family History Family History Father Hypertension Cerebrovascular accident Mother Hypertension Colon cancer Alzheimer's dementia Sibling Diabetes mellitus Daughter Colon cancer Son Colon polyp Cancer of kidney Social History Social History Social History: Surrogate medical decision maker: Gretchen Estrada, daughter. Code status: Full code. Smoking packs per day: 0.2 Smoking cigarettes per day: 4.0 Years smoked: 10 Smoking pack-years: 2.00 Smoking status: Former smoker Tobacco type: cigarettes Smoking end date: 11/14/1963 Alcohol intake: never Substance use: never Substance use type: does not use Lack of Transportation: No Lack of Food: Never True Current Housing: Decline to Answer Concerned About Future Housing: Decline to Answer Difficulty Paying Gas/Electric Bills: Decline to Answer Difficulty Paying for Meds: Decline to Answer Currently Unemployed: Decline to Answer Education: Decline to Answer Difficulty w/ Childcare or Family Care: Decline to Answer Additional living arrangements comments: . Lives in [place]. Independent. Spiritual care concerns: No Agree to blood products: Yes Exam Narrative: EXAMINATION OF ORGAN SYSTEMS/BODY AREAS: Constitutional: Vital signs per nursing , patient is slightly hypotensive a maps above 65 GENERAL:[No acute distress, non-toxic appearing.] HEAD: Normal with no signs of head trauma. EYES: EOMI, conjunctiva normal ENT: Hearing grossly intact LUNGS: Nonlabored breathing. clear to auscultation bilaterally HEART: [Regular rate and rhythm] 2+ radial pulses brisk cap refill ABD: [Soft], [nontender to palpation] no rebound or guarding EXT: Normal range of motion SKIN: [No rashes or lesions.] NEURO: [Alert. No gross focal sensory or strength deficits.] cerebellar testing negative cranial nerves 2-12 intact full strength flexion extension bilateral upper and lower extremities sensation intact throughout. PSYCH: Normal affect Course Vital Signs Vital signs: Vital Signs Temperature 36.8 C 11/09/25 09:45 Pulse Rate 78 11/09/25 09:45 Respiratory Rate 12 11/09/25 09:45 Blood Pressure 98/46 L 11/09/25 09:45 Pulse Oximetry 92 11/09/25 09:45 Oxygen Delivery Room Air 11/09/25 09:45 Temperature 36.8 C 11/09/25 09:45 Pulse Rate 73 11/09/25 11:47 Respiratory Rate 13 11/09/25 11:47 Blood Pressure 106/50 L 11/09/25 11:47 Pulse Oximetry 94 11/09/25 11:16 Oxygen Delivery Room Air 11/09/25 10:35 [facility] Differential Diagnosis Differential Diagnosis: 89-year-old female presents with a syncopal episode. She is slightly hypotensive but otherwise nontoxic-appearing, I suspect that this is likely hypovolemic related versus a vasovagal versus less likely secondary opportunistic pneumonia given her recent viral URI by history. However she is afebrile satting appropriately on room air with clear lungs normal work of breathing. She is very dry on exam I will start with a cardiac workup to rule out atypical presentation of ACS will also rule out pulmonary embolism or space-occupying central nervous system mass. Will obtain head CT basic labs EKG continuous vital sign monitoring 2 L bolus of normal saline plan for evaluation after workup and treatment. Results and re-evaluation Upon re-evaluation the patient feels much improved. She is not symptomatic with positional changes. Her labs were reviewed notable for COVID positive. She is no longer hypertensive her lactic acid is normal her CT head is negative. Shared decision made to do discharge home with symptomatic management I did offer hospital admission given her advanced age weakness but she prefers to go home and there is family members at home live with her. Otherwise return precautions discussed all questions answered discharged in fair condition. Medical Records I have reviewed the following patient records and this information was taken into consideration when formulating the assessment and plan.: previous hospitalizations Lab Data [facility] Lab Attestation statement: I personally reviewed the patient's lab results. 11/09/25 10:17 11/09/25 10:17 Labs: Lab Results 11/09/25 11/09/25 11/09/25 Range/Units 10:17 11:08 11:52 WBC 4.2 L (4.5-10.0) K/mm3 RBC 3.11 L (4.2-5.4) M/mm3 Hgb 9.7 L (12.0-15.0) g/dL Hct 31.5 L (37.0-47.0) % MCV 101.3 H (80-100) fl MCH 31.2 (26-34) pg MCHC 30.8 L (32-36) g/dl RDW 13.2 (11.5-14.5) % Plt Count 240 (150-375) k/mm3 MPV 9.0 (7.4-10.4) fl Immature Gran % (Auto) 0.7 H (0-0.5) % Neut % (Auto) 64.5 (45.5-73.1) % Lymph % (Auto) 21.5 (18.3-44.2) % [place] % (Auto) 12.8 H (2.6-8.5) % Eos % (Auto) 0.0 (0-4.4) % Baso % (Auto) 0.5 (0.2-1.2) % Lymph # (Auto) 0.91 (0.9-3.2) K/mm3 [place] # (Auto) 0.5 (0.1-0.6) K/mm3 Eos # (Auto) 0.0 (0-0.3) K/mm3 Baso # (Auto) 0.0 (0.0-0.1) K/mm3 Abs Immat Gran (auto) 0.03 (0.00-0.031) K/mm3 Absolute Neuts (auto) 2.7 (1.3-6.7) K/mm3 Absolute Nucleated RBC 0.000 (0.0-0.012) K/mm3 Nucleated RBC % 0.0 (0.0-0.2) % PT 13.7 (11.1-14.7) Seconds INR 1.1 APTT 25.0 (22.3-36.8) Seconds D-Dimer 0.56 H (<0.48) ug/mL Sodium 140 (137-145) mmol/L Potassium 4.1 (3.4-5.0) mmol/L Chloride 107 (98-107) mmol/L Carbon Dioxide 29 (22-30) mmol/L Anion Gap 4 (4-12) mmol/L BUN 22 H (7-17) mg/dL Creatinine 1.38 H (0.7-1.0) mg/dL Estim Creat Clear Calc 25 ml/min Estimated GFR 36 L (59 - ) Glucose 134 H (65-110) mg/dL Lactic Acid 1.6 (0.7-2.0) mmol/L Calcium 9.3 (8.4-10.2) mg/dL Total Bilirubin 0.3 (0.2-1.3) mg/dL AST 29 (14-36) U/L ALT 20 (6-35) U/L Alkaline Phosphatase 55 (38-126) U/L Troponin I < 0.012 (0.000-0.034) ng/mL NT-Pro-B Natriuret Pep 53 (19.9-100) pg/mL Total Protein 6.8 (6.3-8.2) g/dL Albumin 3.9 (3.5-5.1) g/dL Lipase 130 (23-300) U/L Urine Color Yellow (Yellow) Urine Appearance Clear (Clear) Urine pH 6.0 (5.0-9.0) Ur Specific [place] 1.011 (1.001-1.035) Urine Protein Negative (Negative) mg/dL Urine Glucose (UA) Negative (Negative) mg/dL Urine Ketones Negative (Negative) mg/dL Ur Blood (Man) Negative (Negative) Urine Nitrate Negative (Negative) Urine Bilirubin Negative (Negative) Urine Urobilinogen 0.2 (<2.0) mg/dL Leukocyte Esterase Rfl Trace H (Negative) SIDNEY/UL Urine RBC 0-2 (0-2) /hpf Urine WBC 0-5 (0-3) /hpf Ur Squamous Epith Cells None seen (Few) /hpf Urine Bacteria None seen /hpf Urine Casts 3-5 Urine Opiates Screen Negative (Negative) Urine Methadone Screen Negative (Negative) Ur Barbiturates Screen Negative (Negative) Ur Phencyclidine Scrn Negative (Negative) Ur Amphetamine Screen Negative (Negative) U Benzodiazepines Scrn Negative (Negative) Urine Cocaine Screen Negative (Negative) U Cannabinoids Screen Negative (Negative) Influenza A (RT-PCR) Negative (Negative) Influenza B (RT-PCR) Negative (Negative) RSV (RT-PCR) Negative (Negative) SARS-CoV-2 RNA (RT-PCR) Positive A (Negative) Imaging Data Attestation: I personally reviewed and interpreted this imaging study as follows: My impression: CT head negative acute as read by me Radiologist's impression: ITS Impressions Head CT 11/09/25 11:08 IMPRESSION: 1. No acute intracranial findings. Chest X-Ray 11/09/25 11:15 IMPRESSION: 1. No acute cardiopulmonary findings given portable technique. ECG Data EKG #1: Attestation: I personally reviewed and interpreted this ECG as follows: Interpretation: 12 lead EKG per my interpretation is normal sinus rhythm at 77 beats per minute. Normal axis. Normal intervals. No evidence of ST-T segment elevation or depression. LVH by voltage criteria otherwise normal EKG. Discharge Plan Discharge Clinical Impression: Syncope, Acute dehydration, COVID Patient Disposition: Home Condition: Improved Instructions: Dehydration (ED), Syncope (ED), COVID-19 (Coronavirus Disease 2019) (ED) Patient Language: Singaporean Prescriptions: No Action ascorbic acid (vitamin C) 500 mg capsule 500 mg PO DAILY famotidine 10 mg tablet 10 mg PO BID Qty: 60 0RF niacin 500 mg capsule, extended release 500 mg PO QHS Qty: 30 0RF Daily Probiotic (4 Strains) 11 billion cell -15 mg capsule 1 cap PO DAILY cholecalciferol (vitamin D3) [Vitamin D3] 10 mcg (400 unit) Capsule 10 mcg PO DAILY omega 5-jfb-xxo-fish oil [Fish Oil] 1,000 mg (120 mg-180 mg) Capsule 1 cap PO DAILY calcium carbonate [Calcium 600] 600 mg calcium (1,500 mg) tablet 1,200 mg PO DAILY Rx Instructions: pt takes 1200mg daily ferrous sulfate 325 mg (65 mg iron) Tablet 325 mg PO QAM atorvastatin 20 mg tablet 20 mg PO HS Qty: 90 3RF Rx Instructions: TAKE 1 TABLET BY MOUTH EVERYDAY amlodipine 5 mg tablet 5 mg PO HS Qty: 90 3RF lisinopril 40 mg tablet See Rx Instructions .ROUTE .COMPLEX Qty: 90 1RF Dose Instruction: TAKE 1 TABLET BY MOUTH EVERY DAY AT BEDTIME Rx Instructions: TAKE 1 TABLET BY MOUTH EVERY DAY AT BEDTIME alendronate [Fosamax] 70 mg tablet 70 mg PO WEEKLY Qty: 12 1RF Follow-up/Referrals: Fredo Cruz APRN [Primary Care Provider, Family Practice] - 3 Days Time of Disposition: 13:00
[2025-11-09 10:43] LABS: Alanine Aminotransferase 20 U/L (6-35); Albumin Level 3.9 g/dL (3.5-5.1); Alkaline Phosphatase 55 U/L (38-126); Anion Gap 4 mmol/L (4-12); Aspartate Amino Transferase 29 U/L (14-36); Bilirubin,Total 0.3 mg/dL (0.2-1.3); Blood Urea Nitrogen 22 mg/dL (7-17); Calcium 9.3 mg/dL (8.4-10.2); Carbon Dioxide 29 mmol/L (22-30); Chloride 107 mmol/L (98-107); Estimated CRCL calculation 25 ml/min; Estimated Glomerular Filt Rate 36; Glucose 134 mg/dL (65-110); Lipase 130 U/L (23-300); Potassium 4.1 mmol/L (3.4-5.0); Sodium 140 mmol/L (137-145); Total Protein 6.8 g/dL (6.3-8.2)
[2025-11-09] MEDS: SODIUM CHLORIDE 0.9% IV 1,000 ML 999 ML IV CONT ×2 (10:52→11:54)
[2025-11-09 10:53] LABS: INR 1.1; Prothrombin Time 13.7 Seconds (11.1-14.7)
[2025-11-09 10:54] LABS: Partial Thromboplastin Time 25.0 Seconds (22.3-36.8)
[2025-11-09 10:59] LABS: NT Pro B Type Natriuretic Pept 53 pg/mL (19.9-100); Troponin I < 0.012 ng/mL (0.000-0.034)
[2025-11-09 11:54] LABS: Influenza A QL RT-PCR Negative (Negative); Influenza B QL RT-PCR Negative (Negative); RSV RNA, RT-PCR Negative (Negative); SARS-CoV-2 RNA PCR Positive (Negative)
[2025-11-09 12:08] LABS: Add Urine Microscopic? YES; Appearance Urine Clear (Clear); Glucose Urine UA Negative (Negative); Leukocyte Esterase Ur Trace LEU/UL (Negative); Nitrate Urine Negative (Negative); Specific Grav Ur 1.011 (1.001-1.035)
[2025-11-09 12:24] LABS: Cannabinoid Screen Urine Negative (Negative)
--- NOTE | 2025-11-09 13:22 | PC.NURSE ---
Patient able to ambulate 200 feet without assistance.
== END 2025-11-09 13:25 | disposition home or self-care (01) ==
PROVIDERS: Emergency Medicine; Emergency Provider Emergency Medicine
DX: U07.1 COVID-19 (principal); R55 Syncope and collapse; E86.0 Dehydration; I12.9 Hypertensive chronic kidney disease with stage 1 through stage 4 chronic kidney disease, or unspecified chronic kidney disease; N18.30 Chronic kidney disease, stage 3 unspecified; E78.5 Hyperlipidemia, unspecified; D50.9 Iron deficiency anemia, unspecified; Z96.651 Presence of right artificial knee joint; Z87.442 Personal history of urinary calculi; Z87.891 Personal history of nicotine dependence; Z96.1 Presence of intraocular lens; Z98.49 Cataract extraction status, unspecified eye; Z79.899 Other long term (current) drug therapy
CPT/HCPCS: 36415; 70450; 71045; 80053; 80307; 81001; 83605; 83690; 83880; 84484; 85025; 85380; 85610; 85730; 87637; 93005; 96360; 96361; 99284; J7030